=== PATIENT | female | born 1960 | race Caucasian/White ===

== ENCOUNTER 2017-05-12 03:16 | Emergency (ER) | payer MEDICARE, MEDICAID ==
[2017-05-12 03:33] VITALS: BP 130/66
[2017-05-12] MEDS ORDERED: Albuterol/Ipratropium 3.0-0.5 MG/3 ML Neb Soln NEB ONE (03:39)
--- NOTE | 2017-05-12 03:52 | EDM.PDOC ---
ED HPI GENERAL MEDICAL PROBLEM - General Chief Complaint: Asthma Stated Complaint: ASTMA ATTACK Time Seen by Provider: 05/12/17 03:25 Source of Information: Reports: Patient - History of Present Illness INITIAL COMMENTS - FREE TEXT/NARRATIVE: 56 y.o.w.f.smoker, h/o asthma,come to the ed due to a dry cough. Pt is using inhalers, which do not work. No F/C. Pt vomited in the parking lot because of the cough. Pt denied other acute medical issues. BP 130/66, pulse 135 Pulse ox 91, RR 22 Onset: Today Onset Date: 05/11/17 Onset Time: 22:00 Duration: Hour(s):, Intermittent Location: Reports: Chest Quality: Reports: Other (dry cough) Severity: Mild Improves with: Reports: Medication Worsens with: Reports: Movement Context: Reports: Other (h/o asthma, smoker) Associated Symptoms: Reports: No Other Symptoms Treatments MOVING CONSULTANT: Reports: Other Medication(s) Other Treatments MOVING CONSULTANT: albuterol inhaler back, throat, head, chest Pain Score (Numeric/FACES): 10 - Related Data Allergies Allergy/AdvReac Type Severity Reaction Status Date / Time Penicillins Allergy Anaphylactic Verified 05/12/17 03:23 Shock Home Meds: Home Meds Albuterol Sulfate [Proair Hfa] 2 puff INH Q4HR PRN 03/20/13 [History] Esomeprazole [NexIUM] 40 mg PO DAILY 03/20/13 [History] Ranitidine [Zantac] 150 mg PO BID 03/20/13 [History] Topiramate 50 mg PO BID 03/20/13 [History] Metoprolol Succinate [Toprol XL] 100 mg PO DAILY 02/20/14 [History] Venlafaxine [Effexor] 75 mg PO BID #60 tablet 02/22/14 [Rx] Lidocaine 2% [Xylocaine 2% Jelly] 1 applic TOP DAILY PRN 05/23/16 [History] Rizatriptan [Maxalt COMM[employer]CIAL REAL ESTATE ATTORNEY] 10 mg PO Q2H PRN 05/23/16 [History] metFORMIN [Glucophage] 500 mg PO BIDMEALS 05/23/16 [History] Past Medical History Cardiovascular History: Reports: Hypertension Respiratory History: Reports: Asthma, COPD Gastrointestinal History: Reports: GERD, GI Bleed, Pancreatitis Genitourinary History: Reports: Renal Disease Other Genitourinary History: 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: Musculoskeletal History: Reports: Back Pain, Chronic, Neck Pain, Chronic, Osteoarthritis Neurological History: Reports: Headaches, Chronic Psychiatric History: Reports: Depression Endocrine/Metabolic History: Reports: Diabetes, Type II - Past Surgical History Neurological Surgical History: Reports: C-Spine, Spinal Fusion Musculoskeletal Surgical History: Reports: Carpal Tunnel Social & Family History - Family History Family Medical History: Noncontributory - Tobacco Use Smoking Status *Q: Current Every Day Smoker Years of Tobacco use: 45 Packs/Tins Daily: 1 Second Hand Smoke Exposure: Yes - Caffeine Use Caffeine Use: Reports: Soda - Alcohol Use Days Per Week of Alcohol Use: 0 - Recreational Drug Use Recreational Drug Use: No ED ROS GENERAL - Review of Systems Review Of Systems: See Below Constitutional: Reports: No Symptoms HEENT: Reports: No Symptoms Respiratory: Reports: Cough Cardiovascular: Reports: No Symptoms Endocrine: Reports: No Symptoms GI/Abdominal: Reports: No Symptoms : Reports: No Symptoms Musculoskeletal: Reports: No Symptoms Skin: Reports: No Symptoms Neurological: Reports: No Symptoms Psychiatric: Reports: No Symptoms Hematologic/Lymphatic: Reports: No Symptoms Immunologic: Reports: No Symptoms ED EXAM, GENERAL - Physical Exam Exam: See Below Exam Limited By: No Limitations General Appearance: Alert, WD/WN, Mild Distress Eye Exam: Bilateral Eye: Normal Inspection Ears: Normal External Exam Ear Exam: Bilateral Ear: Auricle Normal Nose: Normal Inspection, Normal Mucosa Throat/Mouth: Normal Inspection, Normal Lips Head: Atraumatic, Normocephalic Neck: Normal Inspection, Supple, Non-Tender, Full Range of Motion Respiratory/Chest: Rhonchi, Wheezing Cardiovascular: Normal Peripheral Pulses, Regular Rate, Rhythm, No Edema, No Gallop, No JVD, No Murmur Peripheral Pulses: 1+: Radial (L), Radial (R) GI/Abdominal: Normal Bowel Sounds, Soft, Non-Tender (Female) Exam: Deferred Rectal (Female) Exam: Deferred Back Exam: Normal Inspection, Full Range of Motion Extremities: Normal Inspection, Normal Range of Motion Neurological: Alert, Oriented, CN II-XII Intact, Normal Cognition, Normal Gait Psychiatric: Normal Affect, Normal Mood Skin Exam: Warm, Dry, Intact, Normal Color, No Rash Lymphatic: No Adenopathy Course - Vital Signs Text/Narrative:: 56 y.o.w.f.smoker, h/o asthma,come to the ed due to a dry cough. Pt is using inhalers, which do not work. No F/C. Pt vomited in the parking lot because of the cough. Pt denied other acute medical issues. BP 130/66, pulse 135 Pulse ox 91, RR 22 PE: WNWD wf NAD with wheeze and rhonchi Impression: Chronic bronchitis, Asthma Tx: Duobeb Reexam: Couhging, wheezing and rhonchi subsided, puse was 91 on D/C Plan: D/C with instructions Last Recorded V/S: Last Vital Signs Temp 37.6 C 05/12/17 03:25 Pulse 139 H 05/12/17 03:25 Resp 22 H 05/12/17 03:25 BP 130/66 05/12/17 03:25 Pulse Ox 91 L 05/12/17 03:25 - Orders/Labs/Meds Orders: Active Orders 24 hr Category Date Time Status RT Aerosol Therapy [RC] ASDIRECTED Care 05/12/17 03:39 Active Meds: Medications Discontinued Medications Generic Name Dose Route Start Last Admin Trade Name Juanq PRN Reason Stop Dose Admin Albuterol/Ipratropium 3 ml 05/12/17 03:39 05/12/17 03:44 Duoneb 3.0-0.5 Mg/3 Ml NEB 05/12/17 03:40 3 ml ONETIME ONE Administration Departure - Departure Time of Disposition: 03:54 Disposition: Home, Self-Care 01 Condition: Good Clinical Impression: Asthma Qualifiers: Asthma severity: mild Asthma persistence: intermittent Asthma complication type : uncomplicated Qualified Code(s): J45.20 - Mild intermittent asthma, uncomplicated - Discharge Information Referrals: Trae Alexander MD [Primary Care Provider] - Forms: ED Department Discharge Additional Instructions: Please cont your meds, f/u, come back if acutely worse. - My Orders Last 24 Hours: My Active Orders 05/12/17 03:39 RT Aerosol Therapy [RC] ASDIRECTED - Assessment/Plan Last 24 Hours: My Active Orders 05/12/17 03:39 RT Aerosol Therapy [RC] ASDIRECTED
== END 2017-05-12 04:00 | disposition home or self-care (01) ==
LOC: FB.ED 03:16
DX: J45.20 Mild intermittent asthma, uncomplicated (principal); K21.9 Gastro-esophageal reflux disease without esophagitis; I10 Essential (primary) hypertension; E11.9 Type 2 diabetes mellitus without complications; F17.210 Nicotine dependence, cigarettes, uncomplicated; Z88.0 Allergy status to penicillin; Z79.899 Other long term (current) drug therapy
CPT/HCPCS: 94640; 99284; J7620; 99283

== ENCOUNTER → 2019-06-06 | Outpatient (CLI) | payer MEDICARE, MEDICAID ==
[~2019-06-06] MED LIST: Ketorolac 60 MG/2 ML SDV IM ONE; Ondansetron 4 MG/2 ML SDV IM ONE
== END ==
LOC: FB.CLBR 16:02
PROVIDERS: ATTEND Nurse Practitioner Family
DX: J02.9 Acute pharyngitis, unspecified (principal); G43.909 Migraine, unspecified, not intractable, without status migrainosus
CPT/HCPCS: 87081; 87880; 96372; 99213; J1885; J2405

== ENCOUNTER 2019-06-20 10:12 | Day surgery (SDC) | payer MEDICARE, MEDICAID ==
[2019-06-20] MEDS ORDERED: Bupivacaine 0.25% 30 ML SDV INJECT ONE (10:13)
[2019-06-20] MEDS ORDERED: methylPREDNISolone Acetate 80 MG/ML SDV IM ONE (10:13)
[2019-06-20 11:02] VITALS: BP 130/78; PULSE 89
--- NOTE | 2019-06-21 09:40 | ANES ---
DATE OF PROCEDURE: 06/20/2019 REFERRING PHYSICIAN: Gini Shepard CNP PROCEDURE PERFORMED: Epidural steroid injection at L4-L5. REFERRAL DIAGNOSIS: Lumbar radiculopathy PATIENT'S MRI RESULT IMPRESSION: 1. Degenerative changes of the lumbar spine were not significantly changed from the prior in the setting of grade 1 degenerative anterolisthesis of L4 and L5. 2. Advanced facet degeneration bilaterally at L4-L5 without significant canal stenosis. PATIENT'S BACK AND PAIN HISTORY: She has had 35 years of back problems and back pain. She started having some steroid injections in her back 15 to 20 years ago. Her last injection was approximately 7 years ago in [place]. She was having them every 3 months. She said they stopped them because she felt like she was getting osteoporosis from the steroid. Her symptoms got worst approximately 2 years ago, and this past summer significantly worse. Her pain is in her lower back, and it radiates down her left lateral thigh all the way to her foot on her left side. She only takes Tylenol for pain medications. Her initial pain level today was 4. With activity, it goes up to 7 to 8. On examining the patient, she did have pain more significantly at L4-L5 area and bilateral SI joint tenderness. I discussed the risks and benefits of having the steroid injection today, and she accepts the risks and wants to proceed with the steroid injection. DESCRIPTION OF PROCEDURE: The patient was taken back to the procedure room, and she sat on the procedure bed. Informed consent was signed prior to the procedure. Time-out was at 1041 hours. After the patient was comfortable on the bed in a sitting position, I used 3 Betadine swabs to cleanse the skin and applied a sterile drape. Epidural procedure was done under sterile technique. 3 mL of 1% lidocaine was injected into her L4-L5 area. A #17 gauge Tuohy needle was used and passed x2. Good loss of resistance was felt at approximately 7 cm. At this point, I injected Depo Medrol 80 mg, total of 2 mL, and 5 mL Marcaine PF 0.25%.There was no CSF Blood or parathesia After the procedure was done, the needle was withdrawn. The back was washed off with a warm cloth and Band-Aid applied. The patient stood with somebody at her side. Her pain level at this point was 0 out of 10. The patient walked back to her room. Instructions were given to the patient to call with any increased discomfort. I asked her to fill out the pain diary form to keep track of her results from this steroid injection. The patient was told that she can have this repeated 3 times during the year and to call if she would like another injection. Asked the patient to call if she had any increased pain, increased leg weakness or temperature. The patient was satisfied with 0 out of 10 for pain on discharge. /[id number] CLARIBEL/ALLI ZULUAGA
== END 2019-06-20 11:10 | disposition home or self-care (01) ==
LOC: FB.SDS 10:12
PROVIDERS: ATTEND Nurse Practitioner Family
DX: M47.816 Spondylosis without myelopathy or radiculopathy, lumbar region (principal); M43.16 Spondylolisthesis, lumbar region; J44.9 Chronic obstructive pulmonary disease, unspecified; G43.909 Migraine, unspecified, not intractable, without status migrainosus; Z88.0 Allergy status to penicillin; Z79.899 Other long term (current) drug therapy; Z79.84 Long term (current) use of oral hypoglycemic drugs
CPT/HCPCS: 62322; J1040; J3490

== ENCOUNTER 2019-08-20 09:41 | Emergency (ER) | payer MEDICARE, MEDICAID ==
[2019-08-20] MEDS: Sodium Chloride 0.9% 1,000 ML IV SCH ×2 (11:25→13:37)
[2019-08-20] MEDS ORDERED: Levofloxacin/Dextrose 5%-Water 750 MG in Premix Bag 1 BAG IV ONE (12:33)
--- NOTE | 2019-08-20 12:41 | EDM.PDOC ---
ED HPI GENERAL MEDICAL PROBLEM - General Chief Complaint: Respiratory Problem Stated Complaint: FLU Time Seen by Provider: 08/20/19 10:10 Source of Information: Reports: Patient, Family History Limitations: Reports: No Limitations - History of Present Illness INITIAL COMMENTS - FREE TEXT/NARRATIVE: brought in by daughter states she has been ill for about 3 days on wednesday developed nausea and vomiting , states she vomited about 10 times , has not been able to keep any fluids or food down reduced urine out put as she has not been drinking has gotten gradually weak has generalized abd pain , more periumbilical has had no diarrhea or BM no cough , Unsure of fever daughter states she has a history of pancreatitis still a smoker Onset: Today Onset Date: 08/17/19 Duration: Day(s):, Getting Worse Location: Reports: Abdomen, Radiates to (to the back ) Quality: Reports: Ache, Dull Severity: Moderate Improves with: Reports: Heat Therapy Worsens with: Reports: Breathing, Eating, Movement Associated Symptoms: Reports: Loss of Appetite, Malaise, Nausea/Vomiting, Weakness - Related Data Allergies Allergy/AdvReac Type Severity Reaction Status Date / Time Penicillins Allergy Hives Verified 08/20/19 10:11 Home Meds: Home Meds Albuterol Sulfate [Proair Hfa] 2 puff INH Q4HR PRN 03/20/13 [History] Esomeprazole [NexIUM] 40 mg PO DAILY 03/20/13 [History] Ranitidine [Zantac] 150 mg PO BEDTIME 03/20/13 [History] Topiramate 50 mg PO DAILY 03/20/13 [History] Venlafaxine [Effexor] 75 mg PO BID #60 tablet 02/22/14 [Rx] Lidocaine 2% [Xylocaine 2% Jelly] 1 applic TOP DAILY PRN 05/23/16 [History] metFORMIN [Glucophage] 1,000 mg PO BIDMEALS 05/23/16 [History] Montelukast [Singulair] 10 mg PO BEDTIME 06/19/19 [History] Pantoprazole [ProTONIX Granules] 40 mg PO DAILY 06/19/19 [History] Pregabalin 25 mg PO BID 06/19/19 [History] Simvastatin 40 mg PO DAILY 06/19/19 [History] amLODIPine Besylate [Amlodipine Besylate] 10 mg PO DAILY 06/19/19 [History] glipiZIDE [Glipizide Xl] 2.5 mg PO DAILY 06/19/19 [History] lisinopriL [Lisinopril] 20 mg PO DAILY 06/19/19 [History] Past Medical History - Past Health History Medical/Surgical History: Denies Medical/Surgical History Cardiovascular History: Reports: High Cholesterol, Hypertension Respiratory History: Reports: Asthma, COPD Gastrointestinal History: Reports: Gastritis, GERD, GI Bleed, Pancreatitis Genitourinary History: Reports: Renal Disease Other Genitourinary History: 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, 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: Musculoskeletal History: Reports: Back Pain, Chronic, Neck Pain, Chronic, Osteoarthritis Other Musculoskeletal History: SPINAL STENOSIS, SPONDYLOLYSIS Neurological History: Reports: Headaches, Chronic, Migraines Psychiatric History: Reports: Depression Endocrine/Metabolic History: Reports: Diabetes, Type II - Past Surgical History Neurological Surgical History: Reports: C-Spine, Spinal Fusion Musculoskeletal Surgical History: Reports: Carpal Tunnel Other Musculoskeletal Surgeries/Procedures:: C- SPINE SURGERY Social & Family History - Family History Family Medical History: Noncontributory - Tobacco Use Smoking Status *Q: Current Every Day Smoker Years of Tobacco use: 42 Packs/Tins Daily: 2 Used Tobacco, but Quit: No Second Hand Smoke Exposure: Yes - Caffeine Use Caffeine Use: Reports: Coffee - Recreational Drug Use Recreational Drug Use: No ED ROS GENERAL - Review of Systems Review Of Systems: See Below Constitutional: Reports: Malaise, Weakness, Fatigue, Night Sweats, Diaphoresis, Decreased Appetite HEENT: Reports: No Symptoms Respiratory: Reports: No Symptoms Cardiovascular: Reports: No Symptoms Endocrine: Reports: Fatigue GI/Abdominal: Reports: Abdominal Pain, Anorexia, Decreased Appetite. Denies: Constipation, Diarrhea : Reports: No Symptoms Musculoskeletal: Reports: No Symptoms Neurological: Reports: No Symptoms Psychiatric: Reports: No Symptoms Hematologic/Lymphatic: Reports: No Symptoms ED EXAM, GENERAL - Physical Exam Exam: See Below Exam Limited By: No Limitations General Appearance: Alert, Lethargic Eye Exam: Bilateral Eye: EOMI Ears: Normal TMs Ear Exam: Bilateral Ear: Auricle Normal Nose: Normal Inspection Throat/Mouth: Other (dry mucous membranes) Head: Atraumatic, Normocephalic. No: Facial Tenderness Neck: Supple, Non-Tender, Full Range of Motion Respiratory/Chest: Lungs Clear, Normal Breath Sounds, Chest Non-Tender Cardiovascular: Regular Rate, Rhythm GI/Abdominal: Soft, Tender (generalized tenderness), Abnormal Bowel Sounds ( hypoactive). No: Guarding, Rigid, Rebound, Hepatomegaly, Splenomegaly Back Exam: Full Range of Motion. No: CVA Tenderness (R), CVA Tenderness (L), Decreased Range of Motion Neurological: Alert, Oriented, CN II-XII Intact Skin Exam: Warm, Mottled, Pallor. No: Jaundice Lymphatic: No Adenopathy Course - Vital Signs Last Recorded V/S: Last Vital Signs Temp 36.3 C 08/20/19 14:32 Pulse 116 H 08/20/19 14:32 Resp 22 H 08/20/19 14:32 BP 137/50 L 08/20/19 14:32 Pulse Ox 99 08/20/19 14:32 - Orders/Labs/Meds Orders: Active Orders 24 hr Category Date Time Status Abdomen 2V AP Flat Upright [CR] Stat Exams 08/20/19 10:20 Taken Chest 2V [CR] Stat Exams 08/20/19 12:49 Taken CULTURE BLOOD [BC] Urgent Lab 08/20/19 12:56 Received CULTURE BLOOD [BC] Urgent Lab 08/20/19 13:05 Received Blood Culture x2 Reflex Set [OM.PC] Urgent Oth 08/20/19 12:32 Ordered Labs: Laboratory Tests 08/20/19 08/20/19 08/20/19 Range/Units 10:30 10:35 10:35 WBC 26.4 H (4.5-12.0) X10-3/uL RBC 4.07 (3.23-5.20) x10(6)uL Hgb 12.1 (11.5-15.5) g/dL Hct 38.3 (30.0-51.3) % MCV 94.1 (80-96) fL MCH 29.8 (27.7-33.6) pg MCHC 31.6 L (32.2-35.4) g/dL RDW 20.0 H (11.5-15.5) % Plt Count 637 H (125-369) X10(3)uL MPV 6.6 L (7.4-10.4) fL Add Manual Diff Yes Neutrophils % (Manual) 88 H (46-82) % Band Neutrophils % 1 (0-6) % Lymphocytes % (Manual) 7 L (13-37) % Monocytes % (Manual) 4 (4-12) % Anisocytosis Many H Sodium 134 L (135-145) mmol/L Potassium 4.7 D (3.5-5.3) mmol/L Chloride 99 L (100-110) mmol/L Carbon Dioxide 5 L* (21-32) mmol/L BUN 22 H (7-18) mg/dL Creatinine 2.4 H* (0.55-1.02) mg/dL Est Cr Clr Drug Dosing TNP Estimated GFR (MDRD) 21 L (>60) BUN/Creatinine Ratio 9.2 (9-20) Glucose 199 H (80-116) mg/dL Lactic Acid (0.4-2.0) mmol/L Calcium 10.1 (8.6-10.2) mg/dL Total Bilirubin 0.3 (0.1-1.3) mg/dL Direct Bilirubin 0.07 L (0.10-0.20) mg/dL AST 28 H D (5-25) IU/L ALT 14 D (12-36) U/L Alkaline Phosphatase 118 H (56-112) IU/L C-Reactive Protein (0.5-0.9) mg/dL Total Protein 7.8 (6.0-8.0) g/dL Albumin 3.6 (3.2-4.6) g/dL Amylase 1638 H* (25-115) U/L Lipase (73-393) U/L Urine Color (YELLOW) Urine Appearance (CLEAR) Urine pH (5.0-6.5) Ur Specific [place] (1.010-1.025) Urine Protein (NEGATIVE) mg/dL Urine Glucose (UA) (NORMAL) mg/dL Urine Ketones (NEGATIVE) mg/dL Urine Occult Blood (NEGATIVE) Urine Nitrite (NEGATIVE) Urine Bilirubin (NEGATIVE) Urine Urobilinogen (NEGATIVE) mg/dL Ur Leukocyte Esterase (NEGATIVE) Urine RBC (0-5) Urine WBC (0-5) Ur Squamous Epith Cells (NS,R,O) Amorphous Sediment Urine Bacteria (NS) 08/20/19 08/20/19 08/20/19 Range/Units 10:35 11:55 11:56 WBC (4.5-12.0) X10-3/uL RBC (3.23-5.20) x10(6)uL Hgb (11.5-15.5) g/dL Hct (30.0-51.3) % MCV (80-96) fL MCH (27.7-33.6) pg MCHC (32.2-35.4) g/dL RDW (11.5-15.5) % Plt Count (125-369) X10(3)uL MPV (7.4-10.4) fL Add Manual Diff Neutrophils % (Manual) (46-82) % Band Neutrophils % (0-6) % Lymphocytes % (Manual) (13-37) % Monocytes % (Manual) (4-12) % Anisocytosis Sodium (135-145) mmol/L Potassium (3.5-5.3) mmol/L Chloride (100-110) mmol/L Carbon Dioxide (21-32) mmol/L BUN (7-18) mg/dL Creatinine (0.55-1.02) mg/dL Est Cr Clr Drug Dosing Estimated GFR (MDRD) (>60) BUN/Creatinine Ratio (9-20) Glucose (80-116) mg/dL Lactic Acid 2.4 H* (0.4-2.0) mmol/L Calcium (8.6-10.2) mg/dL Total Bilirubin (0.1-1.3) mg/dL Direct Bilirubin (0.10-0.20) mg/dL AST (5-25) IU/L ALT (12-36) U/L Alkaline Phosphatase (56-112) IU/L C-Reactive Protein 11.7 H* (0.5-0.9) mg/dL Total Protein (6.0-8.0) g/dL Albumin (3.2-4.6) g/dL Amylase (25-115) U/L Lipase 8790 H (73-393) U/L Urine Color (YELLOW) Urine Appearance (CLEAR) Urine pH (5.0-6.5) Ur Specific [place] (1.010-1.025) Urine Protein (NEGATIVE) mg/dL Urine Glucose (UA) (NORMAL) mg/dL Urine Ketones (NEGATIVE) mg/dL Urine Occult Blood (NEGATIVE) Urine Nitrite (NEGATIVE) Urine Bilirubin (NEGATIVE) Urine Urobilinogen (NEGATIVE) mg/dL Ur Leukocyte Esterase (NEGATIVE) Urine RBC (0-5) Urine WBC (0-5) Ur Squamous Epith Cells (NS,R,O) Amorphous Sediment Urine Bacteria (NS) 08/20/19 Range/Units 13:10 WBC (4.5-12.0) X10-3/uL RBC (3.23-5.20) x10(6)uL Hgb (11.5-15.5) g/dL Hct (30.0-51.3) % MCV (80-96) fL MCH (27.7-33.6) pg MCHC (32.2-35.4) g/dL RDW (11.5-15.5) % Plt Count (125-369) X10(3)uL MPV (7.4-10.4) fL Add Manual Diff Neutrophils % (Manual) (46-82) % Band Neutrophils % (0-6) % Lymphocytes % (Manual) (13-37) % Monocytes % (Manual) (4-12) % Anisocytosis Sodium (135-145) mmol/L Potassium (3.5-5.3) mmol/L Chloride (100-110) mmol/L Carbon Dioxide (21-32) mmol/L BUN (7-18) mg/dL Creatinine (0.55-1.02) mg/dL Est Cr Clr Drug Dosing Estimated GFR (MDRD) (>60) BUN/Creatinine Ratio (9-20) Glucose (80-116) mg/dL Lactic Acid (0.4-2.0) mmol/L Calcium (8.6-10.2) mg/dL Total Bilirubin (0.1-1.3) mg/dL Direct Bilirubin (0.10-0.20) mg/dL AST (5-25) IU/L ALT (12-36) U/L Alkaline Phosphatase (56-112) IU/L C-Reactive Protein (0.5-0.9) mg/dL Total Protein (6.0-8.0) g/dL Albumin (3.2-4.6) g/dL Amylase (25-115) U/L Lipase (73-393) U/L Urine Color Yellow (YELLOW) Urine Appearance Clear (CLEAR) Urine pH 5.0 (5.0-6.5) Ur Specific [place] 1.020 (1.010-1.025) Urine Protein 30 H (NEGATIVE) mg/dL Urine Glucose (UA) Normal (NORMAL) mg/dL Urine Ketones 15 H (NEGATIVE) mg/dL Urine Occult Blood Large H (NEGATIVE) Urine Nitrite Negative (NEGATIVE) Urine Bilirubin Negative (NEGATIVE) Urine Urobilinogen Normal (NEGATIVE) mg/dL Ur Leukocyte Esterase Negative (NEGATIVE) Urine RBC 0-5 (0-5) Urine WBC 0-5 (0-5) Ur Squamous Epith Cells Moderate H (NS,R,O) Amorphous Sediment Many Urine Bacteria Moderate H (NS) Meds: Medications Discontinued Medications Generic Name Dose Route Start Last Admin Trade Name Freq PRN Reason Stop Dose Admin Sodium Chloride 1,000 mls @ 999 mls/hr 08/20/19 10:30 08/20/19 13:37 Normal Saline IV 999 mls/hr ASDIRECTED LAUREN Administration Levofloxacin/Dextrose 750 mg/ 150 mls @ 100 mls/hr 08/20/19 12:33 08/20/19 13 :37 Premix IV 08/20/19 14:02 100 mls/hr ONETIME ONE Administration Sodium Chloride 1,000 mls @ 999 mls/hr 08/20/19 13:00 Normal Saline IV ASDIRECTED LAUREN - Re-Assessments/Exams Free Text/Narrative Re-Assessment/Exam: 08/20/19 14:15 pt had ivf started with labs after initial labs, added labs for FU sepsis BYRD blood culture , pending chest xray done pt started on Levoquin Departure - Departure Time of Disposition: 14:50 Disposition: DC/Tfer to [facility] Clinical Impression: Sepsis, Pancreatitis, acute, Renal failure syndrome, Diabetes mellitus type 2 - Discharge Information *PRESCRIPTION DRUG MONITORING PROGRAM REVIEWED*: Not Applicable *COPY OF PRESCRIPTION DRUG MONITORING REPORT IN PATIENT JERALD: Not Applicable Referrals: PCP,None [Primary Care Provider] - Forms: ED Department Discharge Sepsis Event Note - Evaluation Sepsis Screening Result: No Definite Risk - Focused Exam Vital Signs: Vital Signs Temp Pulse Resp BP Pulse Ox 08/20/19 14:32 36.3 C 116 H 22 H 137/50 L 99 08/20/19 09:55 36.4 C 120 H 20 111/63 98 Date Exam was Performed: 08/20/19 Time Exam was Performed: 19:22 - My Orders Last 24 Hours: My Active Orders 08/20/19 10:20 Abdomen 2V AP Flat Upright [CR] Stat 08/20/19 12:32 Blood Culture x2 Reflex Set [OM.PC] Urgent 08/20/19 12:49 Chest 2V [CR] Stat 08/20/19 12:56 CULTURE BLOOD [BC] Urgent 08/20/19 13:05 CULTURE BLOOD [BC] Urgent - Assessment/Plan Last 24 Hours: My Active Orders 08/20/19 10:20 Abdomen 2V AP Flat Upright [CR] Stat 08/20/19 12:32 Blood Culture x2 Reflex Set [OM.PC] Urgent 08/20/19 12:49 Chest 2V [CR] Stat 08/20/19 12:56 CULTURE BLOOD [BC] Urgent 08/20/19 13:05 CULTURE BLOOD [BC] Urgent
[2019-08-20] MEDS ORDERED: Sodium Chloride 0.9% 1,000 ML IV SCH (13:00)
[2019-08-20 14:33] VITALS: BP 137/50; PULSE 116
== END 2019-08-20 14:50 | disposition critical access hospital (66) ==
LOC: FB.ED 09:41
DX: A41.9 Sepsis, unspecified organism (principal); K85.90 Acute pancreatitis without necrosis or infection, unspecified; R65.20 Severe sepsis without septic shock; N19 Unspecified kidney failure; E78.00 Pure hypercholesterolemia, unspecified; I10 Essential (primary) hypertension; J44.9 Chronic obstructive pulmonary disease, unspecified; K21.9 Gastro-esophageal reflux disease without esophagitis; E11.9 Type 2 diabetes mellitus without complications; F32.9 Major depressive disorder, single episode, unspecified; F17.210 Nicotine dependence, cigarettes, uncomplicated; Z88.0 Allergy status to penicillin; Z79.899 Other long term (current) drug therapy; Z79.84 Long term (current) use of oral hypoglycemic drugs
CPT/HCPCS: 36415; 71046; 74019; 80048; 80076; 81001; 82150; 83605; 83690; 85025; 86140; 87040; 96365; 99285; J1956; J7030

== ENCOUNTER 2019-12-07 17:08 | Emergency (ER) | payer MEDICARE, MEDICAID ==
[2019-12-07] MEDS ORDERED: Potassium Chloride 20 MEQ Tab.ER PO STA (18:18)
--- NOTE | 2019-12-07 18:27 | EDM.PDOC ---
ED HPI GENERAL MEDICAL PROBLEM - General Chief Complaint: Diabetic Complaint Stated Complaint: HYPO GLYCEMIA Time Seen by Provider: 12/07/19 17:10 Source of Information: Reports: Patient History Limitations: Reports: No Limitations - History of Present Illness INITIAL COMMENTS - FREE TEXT/NARRATIVE: Patient presented to the Ed because of a hyploglycemic episode. She injected her self with her usual dose of insulin then later on she was feeling dizzy, and called for help. When medics arrived at the scene she was incoherent. An accu check wasd 38 and she was given 1 amp of D50 and regained her consciousness back. She is AAO x3 upon her arrival in the ED. - Related Data Allergies Allergy/AdvReac Type Severity Reaction Status Date / Time Penicillins Allergy Hives Verified 08/20/19 10:11 Home Meds: Home Meds Albuterol Sulfate [Proair Hfa] 2 puff INH Q4HR PRN 03/20/13 [History] Esomeprazole [NexIUM] 40 mg PO DAILY 03/20/13 [History] Ranitidine [Zantac] 150 mg PO BEDTIME 03/20/13 [History] Topiramate 50 mg PO DAILY 03/20/13 [History] Venlafaxine [Effexor] 75 mg PO BID #60 tablet 02/22/14 [Rx] Lidocaine 2% [Xylocaine 2% Jelly] 1 applic TOP DAILY PRN 05/23/16 [History] metFORMIN [Glucophage] 1,000 mg PO BIDMEALS 05/23/16 [History] Montelukast [Singulair] 10 mg PO BEDTIME 06/19/19 [History] Pantoprazole [ProTONIX Granules] 40 mg PO DAILY 06/19/19 [History] Pregabalin 25 mg PO BID 06/19/19 [History] Simvastatin 40 mg PO DAILY 06/19/19 [History] amLODIPine Besylate [Amlodipine Besylate] 10 mg PO DAILY 06/19/19 [History] glipiZIDE [Glipizide Xl] 2.5 mg PO DAILY 06/19/19 [History] lisinopriL [Lisinopril] 20 mg PO DAILY 06/19/19 [History] Past Medical History - Past Health History Medical/Surgical History: Denies Medical/Surgical History Cardiovascular History: Reports: High Cholesterol, Hypertension Respiratory History: Reports: Asthma, COPD Gastrointestinal History: Reports: Gastritis, GERD, GI Bleed, Pancreatitis Genitourinary History: Reports: Renal Disease Other Genitourinary History: 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, 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: Musculoskeletal History: Reports: Back Pain, Chronic, Neck Pain, Chronic, Osteoarthritis Other Musculoskeletal History: SPINAL STENOSIS, SPONDYLOLYSIS Neurological History: Reports: Headaches, Chronic, Migraines Psychiatric History: Reports: Depression Endocrine/Metabolic History: Reports: Diabetes, Type II - Past Surgical History Neurological Surgical History: Reports: C-Spine, Spinal Fusion Musculoskeletal Surgical History: Reports: Carpal Tunnel Other Musculoskeletal Surgeries/Procedures:: C- SPINE SURGERY Social & Family History - Family History Family Medical History: Noncontributory - Caffeine Use Caffeine Use: Reports: Coffee ED ROS GENERAL - Review of Systems Review Of Systems: See Below Constitutional: Reports: No Symptoms HEENT: Reports: No Symptoms Respiratory: Reports: No Symptoms Cardiovascular: Reports: No Symptoms Endocrine: Reports: No Symptoms GI/Abdominal: Reports: No Symptoms : Reports: No Symptoms Musculoskeletal: Reports: No Symptoms Skin: Reports: No Symptoms Neurological: Reports: No Symptoms Psychiatric: Reports: No Symptoms ED EXAM GENERAL NO PERIP PULSE - Physical Exam Exam: See Below Exam Limited By: No Limitations General Appearance: Alert, No Apparent Distress Ears: Normal External Exam, Normal Canal, Hearing Grossly Normal Nose: Normal Inspection, Normal Mucosa, No Blood Throat/Mouth: Normal Inspection, Normal Lips, Normal Teeth Head: Atraumatic, Normocephalic Neck: Normal Inspection, Supple, Non-Tender Respiratory/Chest: No Respiratory Distress, Lungs Clear, Normal Breath Sounds Cardiovascular: Normal Peripheral Pulses, Regular Rate, Rhythm, No Edema, No Gallop GI/Abdominal: Normal Bowel Sounds, Soft, Non-Tender, No Organomegaly Back Exam: Normal Inspection, Full Range of Motion Course - Vital Signs Text/Narrative:: Labs reviewed and discussed with patient and verbalized full understanding Her serum glucose was 83 and was given a meal Klor con 40 meq po x1 dose because of hey hypokalemia Last Recorded V/S: Last Vital Signs Temp 36.1 C 12/07/19 18:45 Pulse 65 12/07/19 18:45 Resp 17 12/07/19 18:45 BP 118/55 L 12/07/19 18:45 Pulse Ox 100 12/07/19 18:45 - Orders/Labs/Meds Labs: Laboratory Tests 12/07/19 12/07/19 Range/Units 17:43 17:43 WBC 7.1 (4.5-12.0) X10-3/uL RBC 3.12 L (3.23-5.20) x10(6)uL Hgb 10.2 L (11.5-15.5) g/dL Hct 31.7 (30.0-51.3) % MCV 101.8 H (80-96) fL MCH 32.6 (27.7-33.6) pg MCHC 32.0 L (32.2-35.4) g/dL RDW 23.3 H (11.5-15.5) % Plt Count 390 H (125-369) X10(3)uL MPV 8.6 (7.4-10.4) fL Neut % (Auto) 71.5 (46-82) % Lymph % (Auto) 23.4 (13-37) % Lee % (Auto) 3.4 L (4-12) % Eos % (Auto) 0 L (1.0-5.0) % Baso % (Auto) 1 (0-2) % Neut # (Auto) 5.1 (1.6-8.3) # Lymph # (Auto) 1.7 (0.6-5.0) # Lee # (Auto) 0.2 (0.0-1.3) # Eos # (Auto) 0.0 (0.0-0.8) # Baso # (Auto) 0.1 (0.0-0.2) # Sodium 139 (135-145) mmol/L Potassium 3.4 L D (3.5-5.3) mmol/L Chloride 106 D (100-110) mmol/L Carbon Dioxide 22 (21-32) mmol/L BUN 13 (7-18) mg/dL Creatinine 0.9 (0.55-1.02) mg/dL Est Cr Clr Drug Dosing TNP Estimated GFR (MDRD) > 60 (>60) BUN/Creatinine Ratio 14.4 (9-20) Glucose 83 D (80-116) mg/dL Calcium 7.8 L D (8.6-10.2) mg/dL Meds: Medications Discontinued Medications Generic Name Dose Route Start Last Admin Trade Name Minna PRN Reason Stop Dose Admin Potassium Chloride 40 meq 12/07/19 18:18 12/07/19 18:40 Klor-Con M20 PO 12/07/19 18:19 40 meq NOW STA Administration Departure - Departure Time of Disposition: 18:30 Disposition: Home, Self-Care 01 Condition: Good Clinical Impression: Hypoglycemia, Hypokalemia - Discharge Information Instructions: Hypokalemia, Hypoglycemia, [id number] Referrals: PCP,None [Primary Care Provider] - Forms: ED Department Discharge Additional Instructions: please read discharge instruction on low blood sugar and low potassium increase oral fluids take a regular meal when you get home follow up with your doctor if your low blood sugar episode is becoming more frequent so your doctor can adjust your insulin dose. Sepsis Event Note - Focused Exam Date Exam was Performed: 12/21/19 Time Exam was Performed: 07:18
[2019-12-07 19:51] VITALS: BP 118/55; PULSE 65
== END 2019-12-07 18:53 | disposition home or self-care (01) ==
LOC: FB.ED 17:08
DX: E11.649 Type 2 diabetes mellitus with hypoglycemia without coma (principal); E87.6 Hypokalemia; E78.00 Pure hypercholesterolemia, unspecified; I10 Essential (primary) hypertension; J44.9 Chronic obstructive pulmonary disease, unspecified; K21.9 Gastro-esophageal reflux disease without esophagitis; F32.9 Major depressive disorder, single episode, unspecified; M19.90 Unspecified osteoarthritis, unspecified site; Z88.0 Allergy status to penicillin; Z79.899 Other long term (current) drug therapy; Z79.84 Long term (current) use of oral hypoglycemic drugs
CPT/HCPCS: 36415; 80048; 85025; 99285; A9270; 99283

== ENCOUNTER 2020-02-14 08:55 | Observation (INO) | payer MEDICARE, MEDICAID ==
[2020-02-14] MEDS ORDERED: Albuterol/Ipratropium 3.0-0.5 MG/3 ML Neb Soln NEB ONE (09:24)
[2020-02-14] MEDS ORDERED: methylPREDNISolone Sodium Succinate 125 MG/2 ML SDV IVPUSH ONE (09:28)
[2020-02-14] MEDS ORDERED: methylPREDNISolone Sodium Succinate 125 MG/2 ML SDV IM ONE (09:30)
--- NOTE | 2020-02-14 11:04 | CR ---
INDICATION: Dyspnea. CHEST, ONE VIEW: Portable AP upright view of the chest 02/14/20 was compared with 09/09/19 and 11/17/18. The heart appears enlarged. Upper lung pulmonary vascularity is slightly prominent and indistinct. Interstitial markings are heavy. Findings suggest the possibility of CHF and interstitial lung edema, possibly with some minimal pleural fluid bilaterally. It is also difficult to exclude minimal patchy bronchopneumonia at the lung bases due to heavy markings. Regarding the latter finding, full inspiration PA and lateral views of the chest may be helpful for further evaluation. MTDD
[2020-02-14] MEDS ORDERED: Metolazone 5 MG Tab PO ONE (12:44)
[2020-02-14] MEDS ORDERED: Furosemide 20 MG/2 ML VIAL IVPUSH STA (12:44)
[2020-02-14] MEDS ORDERED: Sodium Chloride 0.9% 10 ML Syringe FLUSH PRN (12:44)
[2020-02-14] MEDS ORDERED: hydrALAZINE 20 MG/ML SDV IVPUSH ONE (12:54)
[2020-02-14] MEDS ORDERED: Furosemide 40 MG/4 ML VIAL IVPUSH ONE (13:06)
--- NOTE | 2020-02-14 14:11 | EDM.PDOC ---
ED HPI GENERAL MEDICAL PROBLEM - General Chief Complaint: General Stated Complaint: COUGH, COPD Time Seen by Provider: 02/14/20 13:25 Source of Information: Reports: Patient History Limitations: Reports: No Limitations - History of Present Illness INITIAL COMMENTS - FREE TEXT/NARRATIVE: Patient presented to the ED because of dyspnea and bilateral extremity edema, coughing productive of whitish for 1 month. For the past several days her dyspnea has been progressively getting worse. She normally can walk blocks without being dysneic but now she audrey only walk 5 feet and she get winded and tired. There is no associated chest pain, N/V, fever or chills. - Related Data Allergies Allergy/AdvReac Type Severity Reaction Status Date / Time Penicillins Allergy Hives Verified 08/20/19 10:11 Home Meds: Home Meds Albuterol Sulfate [Proair Hfa] 2 puff INH Q4HR PRN 03/20/13 [History] Esomeprazole [NexIUM] 40 mg PO DAILY 03/20/13 [History] Ranitidine [Zantac] 150 mg PO BEDTIME 03/20/13 [History] Topiramate 50 mg PO DAILY 03/20/13 [History] Venlafaxine [Effexor] 75 mg PO BID #60 tablet 02/22/14 [Rx] Lidocaine 2% [Xylocaine 2% Jelly] 1 applic TOP DAILY PRN 05/23/16 [History] metFORMIN [Glucophage] 1,000 mg PO BIDMEALS 05/23/16 [History] Montelukast [Singulair] 10 mg PO BEDTIME 06/19/19 [History] Pantoprazole [ProTONIX Granules] 40 mg PO DAILY 06/19/19 [History] Pregabalin 25 mg PO BID 06/19/19 [History] Simvastatin 40 mg PO DAILY 06/19/19 [History] amLODIPine Besylate [Amlodipine Besylate] 10 mg PO DAILY 06/19/19 [History] glipiZIDE [Glipizide Xl] 2.5 mg PO DAILY 06/19/19 [History] lisinopriL [Lisinopril] 20 mg PO DAILY 06/19/19 [History] Past Medical History - Past Health History Medical/Surgical History: Denies Medical/Surgical History Cardiovascular History: Reports: High Cholesterol, Hypertension Respiratory History: Reports: Asthma, COPD Other Respiratory History: smoker for 50 years. 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: Musculoskeletal History: Reports: Back Pain, Chronic, Neck Pain, Chronic, Osteoarthritis Other Musculoskeletal History: SPINAL STENOSIS, SPONDYLOLYSIS Neurological History: Reports: Headaches, Chronic, Migraines Psychiatric History: Reports: Depression Endocrine/Metabolic History: Reports: Diabetes, Type II - Past Surgical History Neurological Surgical History: Reports: C-Spine, Spinal Fusion Musculoskeletal Surgical History: Reports: Carpal Tunnel Other Musculoskeletal Surgeries/Procedures:: C- SPINE SURGERY Social & Family History - Family History Family Medical History: Noncontributory - Tobacco Use Smoking Status *Q: Never Smoker - Caffeine Use Caffeine Use: Reports: Coffee ED ROS GENERAL - Review of Systems Review Of Systems: See Below Constitutional: Reports: No Symptoms HEENT: Reports: No Symptoms Respiratory: Reports: Shortness of Breath, Cough, Sputum Cardiovascular: Reports: Dyspnea on Exertion, Edema Endocrine: Reports: No Symptoms GI/Abdominal: Reports: No Symptoms : Reports: No Symptoms Musculoskeletal: Reports: No Symptoms Skin: Reports: No Symptoms Neurological: Reports: No Symptoms Psychiatric: Reports: No Symptoms ED EXAM, GENERAL - Physical Exam Exam: See Below Exam Limited By: No Limitations General Appearance: Alert, No Apparent Distress Eye Exam: Bilateral Eye: PERRL Ears: Normal External Exam, Normal Canal Nose: Normal Inspection, Normal Mucosa Throat/Mouth: Normal Inspection, Normal Lips, Normal Teeth Head: Atraumatic, Normocephalic Neck: Normal Inspection, Supple, Non-Tender, Full Range of Motion Respiratory/Chest: No Respiratory Distress, Decreased Breath Sounds, Crackles, Wheezing Cardiovascular: Normal Peripheral Pulses, Regular Rate, Rhythm, No Edema, No Gallop GI/Abdominal: Normal Bowel Sounds, Soft, Non-Tender, No Organomegaly Back Exam: Normal Inspection, Full Range of Motion Extremities: Pedal Edema, Joint Swelling, Other Psychiatric: Normal Affect Course - Vital Signs Text/Narrative:: Labs/EKG/CXR was reviewed with patient and verbalized full understanding EKG-NSR=CXR-see result Duoneb x1 Solumedrol 125 mg IM x1 Lasix 40 mg IV x1 Zaroxolyn 5 mg po x1 Hydralazine 20 mg IV x1 Case Discussed with Dr Mercado Last Recorded V/S: Last Vital Signs Temp 36.7 C 02/14/20 13:21 Pulse 103 H 02/14/20 13:32 Resp 19 02/14/20 13:32 BP 152/82 H 02/14/20 13:32 Pulse Ox 98 02/14/20 13:32 - Orders/Labs/Meds Orders: Active Orders 24 hr Category Date Time Status RT Aerosol Therapy [RC] ASDIRECTED Care 02/14/20 09:28 Active Sodium Chloride 0.9% [Saline Flush] Med 02/14/20 12:44 Active 10 ml FLUSH ASDIRECTED PRN Saline Lock Insert [OM.PC] Routine Oth 02/14/20 12:44 Ordered Medication Orders Sodium Chloride (Saline Flush) 10 ml FLUSH ASDIRECTED PRN PRN Reason: Keep Vein Open Labs: Laboratory Tests 02/14/20 02/14/20 02/14/20 Range/Units 10:00 10:00 10:00 WBC 11.4 (4.5-12.0) X10-3/uL RBC 3.05 L (3.23-5.20) x10(6)uL Hgb 8.5 L (11.5-15.5) g/dL Hct 27.4 L (30.0-51.3) % MCV 89.6 (80-96) fL MCH 27.8 (27.7-33.6) pg MCHC 31.0 L (32.2-35.4) g/dL RDW 18.9 H (11.5-15.5) % Plt Count 316 (125-369) X10(3)uL MPV 8.6 (7.4-10.4) fL Neut % (Auto) 59.6 (46-82) % Lymph % (Auto) 29.0 (13-37) % [facility] % (Auto) 9.8 (4-12) % Eos % (Auto) 1 (1.0-5.0) % Baso % (Auto) 1 (0-2) % Neut # (Auto) 6.8 (1.6-8.3) # Lymph # (Auto) 3.3 (0.6-5.0) # [facility] # (Auto) 1.1 (0.0-1.3) # Eos # (Auto) 0.1 (0.0-0.8) # Baso # (Auto) 0.1 (0.0-0.2) # Sodium 136 (135-145) mmol/L Potassium 3.8 (3.5-5.3) mmol/L Chloride 104 (100-110) mmol/L Carbon Dioxide 23 (21-32) mmol/L BUN 20 H (7-18) mg/dL Creatinine 0.9 (0.55-1.02) mg/dL Est Cr Clr Drug Dosing TNP Estimated GFR (MDRD) > 60 (>60) BUN/Creatinine Ratio 22.2 H (9-20) Glucose 271 H D (80-116) mg/dL Calcium 8.1 L (8.6-10.2) mg/dL Total Bilirubin 0.6 (0.1-1.3) mg/dL AST 25 D (5-25) IU/L ALT 37 H D (12-36) U/L Alkaline Phosphatase 112 (56-112) IU/L Troponin I 37.2 (4.0-60.3) pg/mL NT-Pro-B Natriuret Pep 94330 H* (<=125) pg/mL Total Protein 6.7 (6.0-8.0) g/dL Albumin 2.4 L (3.2-4.6) g/dL Globulin 4.3 g/dL Albumin/Globulin Ratio 0.6 SARS Virus RNA (PCR) (NEGATIVE) 02/14/20 Range/Units 10:05 WBC (4.5-12.0) X10-3/uL RBC (3.23-5.20) x10(6)uL Hgb (11.5-15.5) g/dL Hct (30.0-51.3) % MCV (80-96) fL MCH (27.7-33.6) pg MCHC (32.2-35.4) g/dL RDW (11.5-15.5) % Plt Count (125-369) X10(3)uL MPV (7.4-10.4) fL Neut % (Auto) (46-82) % Lymph % (Auto) (13-37) % [facility] % (Auto) (4-12) % Eos % (Auto) (1.0-5.0) % Baso % (Auto) (0-2) % Neut # (Auto) (1.6-8.3) # Lymph # (Auto) (0.6-5.0) # [facility] [place] # (Auto) (0.0-1.3) # Eos # (Auto) (0.0-0.8) # Baso # (Auto) (0.0-0.2) # Sodium (135-145) mmol/L Potassium (3.5-5.3) mmol/L Chloride (100-110) mmol/L Carbon Dioxide (21-32) mmol/L BUN (7-18) mg/dL Creatinine (0.55-1.02) mg/dL Est Cr Clr Drug Dosing Estimated GFR (MDRD) (>60) BUN/Creatinine Ratio (9-20) Glucose (80-116) mg/dL Calcium (8.6-10.2) mg/dL Total Bilirubin (0.1-1.3) mg/dL AST (5-25) IU/L ALT (12-36) U/L Alkaline Phosphatase (56-112) IU/L Troponin I (4.0-60.3) pg/mL NT-Pro-B Natriuret Pep (<=125) pg/mL Total Protein (6.0-8.0) g/dL Albumin (3.2-4.6) g/dL Globulin g/dL Albumin/Globulin Ratio SARS Virus RNA (PCR) Negative (NEGATIVE) Meds: Medications Generic Name Dose Route Start Last Admin Trade Name Freq PRN Reason Stop Dose Admin Sodium Chloride 10 ml 02/14/20 12:44 Saline Flush FLUSH ASDIRECTED PRN Keep Vein Open Discontinued Medications Generic Name Dose Route Start Last Admin Trade Name Freq PRN Reason Stop Dose Admin Albuterol/Ipratropium 3 ml 02/14/20 09:24 02/14/20 09:40 Duoneb 3.0-0.5 Mg/3 Ml NEB 02/14/20 09:25 3 ml ONETIME ONE Administration Furosemide 60 mg 02/14/20 12:44 Lasix IVPUSH 02/14/20 12:45 NOW STA Furosemide 40 mg 02/14/20 13:06 02/14/20 13:12 Lasix IVPUSH 02/14/20 13:07 40 mg NOW ONE Administration Hydralazine HCl 20 mg 02/14/20 12:54 02/14/20 13:18 Apresoline IVPUSH 02/14/20 12:55 20 mg ONETIME ONE Administration Methylprednisolone Sodium Succinate 125 mg 02/14/20 09:30 02/14/20 09:43 Solu-Medrol IM 02/14/20 09:31 125 mg ONETIME ONE Administration Metolazone 5 mg 02/14/20 12:44 02/14/20 13:12 Zaroxolyn PO 02/14/20 12:45 5 mg ONETIME ONE Administration Departure - Departure Time of Disposition: 12:00 Disposition: Refer to Observation Condition: Good Clinical Impression: New onset of congestive heart failure - Discharge Information Referrals: Trae Alexander MD [Primary Care Provider] - Sepsis Event Note (ED) - Focused Exam Vital Signs: Vital Signs Temp Pulse Resp BP Pulse Ox 02/14/20 13:32 103 H 19 152/82 H 98 02/14/20 13:21 36.7 C 98 18 167/90 H 98 - My Orders Last 24 Hours: My Active Orders 02/14/20 09:28 RT Aerosol Therapy [RC] ASDIRECTED 02/14/20 12:44 Sodium Chloride 0.9% [Saline Flush] 10 ml FLUSH ASDIRECTED PRN Saline Lock Insert [OM.PC] Routine - Assessment/Plan Last 24 Hours: My Active Orders 02/14/20 09:28 RT Aerosol Therapy [RC] ASDIRECTED 02/14/20 12:44 Sodium Chloride 0.9% [Saline Flush] 10 ml FLUSH ASDIRECTED PRN Saline Lock Insert [OM.PC] Routine
[2020-02-14] MEDS ORDERED: Zolpidem 5 MG Tab PO PRN (14:15)
[2020-02-14] MEDS ORDERED: Ondansetron 4 MG/2 ML SDV IVPUSH PRN (14:15)
[2020-02-14] MEDS: Enoxaparin 40 MG/0.4 ML Syringe SUBCUT SCH (14:40)
[2020-02-14] MEDS ORDERED: Lidocaine 5% 700 MG Patch TOP PRN (16:46)
[2020-02-14] MEDS ORDERED: Lidocaine 2% Jelly 30 ML Tube TOP PRN (16:46)
[2020-02-14] MEDS ORDERED: Albuterol 8 GM Inhaler INH PRN (16:46)
--- NOTE | 2020-02-14 16:58 | PCM.HP.2 ---
H&P History of Present Illness - General Date of Service: 02/14/20 Admit Problem/Dx: Admission Diagnosis/Problem Admission Diagnosis/Problem CHF, Congestive heart failure Source of Information: Patient, Old Records History Limitations: Reports: No Limitations - History of Present Illness Initial Comments - Free Text/Narative: This is a 59-year-old female patient with known history of COPD and smoker comes in to the ER after being sent over by clinic with increasing shortness of breath. She says over the last month she's been getting more short of breath. She says her legs are swollen and her abdomen is bloated. She does have some wheezing but this feels different than when she has COPD. She's had been in the hospital for COPD. She does have a cough with whitish discharge she states. She denies fevers, chills, chest pain. Has little bit of runny nose. She says at fi rst when she lays on she is more short of breath. She cannot walk as far as she is to walk. - Related Data Allergies/Adverse Reactions: Allergies Allergy/AdvReac Type Severity Reaction Status Date / Time Penicillins Allergy Hives Verified 08/20/19 10:11 Home Medications: Home Meds Albuterol Sulfate [Proair Hfa] 2 puff INH Q4HR PRN 03/20/13 [History] Topiramate 50 mg PO DAILY 03/20/13 [History] Lidocaine 2% [Xylocaine 2% Jelly] 1 applic TOP DAILY PRN 05/23/16 [History] Montelukast [Singulair] 10 mg PO BEDTIME 06/19/19 [History] Pantoprazole [ProTONIX Granules] 40 mg PO DAILY 06/19/19 [History] Pregabalin 25 mg PO BID 06/19/19 [History] Simvastatin 40 mg PO DAILY 06/19/19 [History] amLODIPine Besylate [Amlodipine Besylate] 10 mg PO DAILY 06/19/19 [History] glipiZIDE [Glipizide Xl] 2.5 mg PO DAILY 06/19/19 [History] lisinopriL [Lisinopril] 20 mg PO DAILY 06/19/19 [History] Budesonide/Formoterol [Symbicort 160-4.5 MCG] 2 puff INH BID 07/29/20 [History] Escitalopram Oxalate [Lexapro] 20 mg PO DAILY 02/14/20 [History] Insulin Aspart [NovoLOG] 10 units SUBCUT TIDMEALS 02/14/20 [History] Insulin Glargine,Hum.Rec.Anlog [Lantus Solostar] 8 units SUBCUT BEDTIME 02/14/20 [History] Lidocaine 5% [Lidoderm 5%] 700 mg TOP DAILY PRN 02/14/20 [History] Metoprolol Succinate 100 mg PO DAILY 02/14/20 [History] Past Medical History - Past Health History Medical/Surgical History: Denies Medical/Surgical History Cardiovascular History: Reports: High Cholesterol, Hypertension Respiratory History: Reports: Asthma, COPD Other Respiratory History: smoker for 50 years. Gastrointestinal History: Reports: Gastritis, GERD, GI Bleed, Pancreatitis Genitourinary History: Reports: Renal Disease Other Genitourinary History: 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, GASTRIC [employer] History: Reports: Musculoskeletal History: Reports: Back Pain, Chronic, Neck Pain, Chronic, Osteoarthritis Other Musculoskeletal History: SPINAL STENOSIS, SPONDYLOLYSIS Neurological History: Reports: Headaches, Chronic, Migraines Psychiatric History: Reports: Depression Endocrine/Metabolic History: Reports: Diabetes, Type II - Past Surgical History Neurological Surgical History: Reports: C-Spine, Spinal Fusion Musculoskeletal Surgical History: Reports: Carpal Tunnel Other Musculoskeletal Surgeries/Procedures:: C- SPINE SURGERY Social & Family History - Family History Family Medical History: Noncontributory - Tobacco Use Smoking Status *Q: Never Smoker - Caffeine Use Caffeine Use: Reports: Coffee H&P Review of Systems - Review of Systems: Review Of Systems: See Below General: Reports: No Symptoms HEENT: Reports: No Symptoms Pulmonary: Reports: Shortness of Breath, Wheezing, Cough, Sputum. Denies: Hem optysis Cardiovascular: Reports: Edema Gastrointestinal: Reports: No Symptoms, Other (No symptoms except see history of present illness.) Genitourinary: Reports: No Symptoms Musculoskeletal: Reports: No Symptoms Skin: Reports: No Symptoms Psychiatric: Reports: No Symptoms Neurological: Reports: No Symptoms Hematologic/Lymphatic: Reports: No Symptoms Immunologic: Reports: No Symptoms Exam - Exam Exam: See Below - Vital Signs Vital Signs: Last Vital Signs Temp 98.1 F 02/14/20 15:52 Pulse 96 02/14/20 15:52 Resp 17 02/14/20 15:52 BP 149/85 H 02/14/20 15:52 Pulse Ox 98 02/14/20 15:52 Weight: 160 lb - Exam General: Alert, Oriented, Cooperative HEENT: Hearing Intact, Posterior Pharynx Clear, TMs Clear Neck: Supple, Trachea Midline, JVD Lungs: Clear to Auscultation, Normal Respiratory Effort. No: Crackles, Rales, Rhonchi Cardiovascular: Regular Rate, Regular Rhythm, Normal S1, Systolic Murmur GI/Abdominal Exam: Normal Bowel Sounds, Soft, Non-Tender, Distended Extremities: Normal Inspection, No Pedal Edema, Pedal Edema Skin: Warm, Dry, Intact Neurological: Normal Speech, Normal Tone Psychiatric: Alert, Normal Affect, Normal Mood - Patient Data Lab Results Last 24 hrs: Laboratory Results - last 24 hr 02/14/20 02/14/20 02/14/20 Range/Units 10:00 10:00 10:00 WBC 11.4 (4.5-12.0) X10-3/uL RBC 3.05 L (3.23-5.20) x10(6)uL Hgb 8.5 L (11.5-15.5) g/dL Hct 27.4 L (30.0-51.3) % MCV 89.6 (80-96) fL MCH 27.8 (27.7-33.6) pg MCHC 31.0 L (32.2-35.4) g/dL RDW 18.9 H (11.5-15.5) % Plt Count 316 (125-369) X10(3)uL MPV 8.6 (7.4-10.4) fL Neut % (Auto) 59.6 (46-82) % Lymph % (Auto) 29.0 (13-37) % Fleming % (Auto) 9.8 (4-12) % Eos % (Auto) 1 (1.0-5.0) % Baso % (Auto) 1 (0-2) % Neut # (Auto) 6.8 (1.6-8.3) # Lymph # (Auto) 3.3 (0.6-5.0) # Fleming # (Auto) 1.1 (0.0-1.3) # Eos # (Auto) 0.1 (0.0-0.8) # Baso # (Auto) 0.1 (0.0-0.2) # Sodium 136 (135-145) mmol/L Potassium 3.8 (3.5-5.3) mmol/L Chloride 104 (100-110) mmol/L Carbon Dioxide 23 (21-32) mmol/L BUN 20 H (7-18) mg/dL Creatinine 0.9 (0.55-1.02) mg/dL Est Cr Clr Drug Dosing TNP Estimated GFR (MDRD) > 60 (>60) BUN/Creatinine Ratio 22.2 H (9-20) Glucose 271 H D (80-116) mg/dL Calcium 8.1 L (8.6-10.2) mg/dL Total Bilirubin 0.6 (0.1-1.3) mg/dL AST 25 D (5-25) IU/L ALT 37 H D (12-36) U/L Alkaline Phosphatase 112 (56-112) IU/L Troponin I 37.2 (4.0-60.3) pg/mL NT-Pro-B Natriuret Pep 67119 H* (<=125) pg/mL Total Protein 6.7 (6.0-8.0) g/dL Albumin 2.4 L (3.2-4.6) g/dL Globulin 4.3 g/dL Albumin/Globulin Ratio 0.6 SARS Virus RNA (PCR) (NEGATIVE) 02/14/20 Range/Units 10:05 WBC (4.5-12.0) X10-3/uL RBC (3.23-5.20) x10(6)uL Hgb (11.5-15.5) g/dL Hct (30.0-51.3) % MCV (80-96) fL MCH (27.7-33.6) pg MCHC (32.2-35.4) g/dL RDW (11.5-15.5) % Plt Count (125-369) X10(3)uL MPV (7.4-10.4) fL Neut % (Auto) (46-82) % Lymph % (Auto) (13-37) % Fleming % (Auto) (4-12) % Eos % (Auto) (1.0-5.0) % Baso % (Auto) (0-2) % Neut # (Auto) (1.6-8.3) # Lymph # (Auto) (0.6-5.0) # Fleming # (Auto) (0.0-1.3) # Eos # (Auto) (0.0-0.8) # Baso # (Auto) (0.0-0.2) # Sodium (135-145) mmol/L Potassium (3.5-5.3) mmol/L Chloride (100-110) mmol/L Carbon Dioxide (21-32) mmol/L BUN (7-18) mg/dL Creatinine (0.55-1.02) mg/dL Est Cr Clr Drug Dosing Estimated GFR (MDRD) (>60) BUN/Creatinine Ratio (9-20) Glucose (80-116) mg/dL Calcium (8.6-10.2) mg/dL Total Bilirubin (0.1-1.3) mg/dL AST (5-25) IU/L ALT (12-36) U/L Alkaline Phosphatase (56-112) IU/L Troponin I (4.0-60.3) pg/mL NT-Pro-B Natriuret Pep (<=125) pg/mL Total Protein (6.0-8.0) g/dL Albumin (3.2-4.6) g/dL Globulin g/dL Albumin/Globulin Ratio SARS Virus RNA (PCR) Negative (NEGATIVE) Result Diagrams: 02/14/20 10:00 02/14/20 10:00 Sepsis Event Note - Evaluation Sepsis Screening Result: No Definite Risk - Focused Exam Vital Signs: Vital Signs Temp Pulse Resp BP Pulse Ox 02/14/20 15:52 98.1 F 96 17 149/85 H 98 02/14/20 13:32 103 H 19 152/82 H 98 02/14/20 13:21 98.1 F 98 18 167/90 H 98 02/14/20 08:56 98.2 F 99 19 156/87 H 98 Date Exam was Performed: 02/14/20 Time Exam was Performed: 16:52 - Problem List (1) Anemia SNOMED Code(s): 009448466 ICD Code: D64.9 - ANEMIA, UNSPECIFIED Status: Acute Current Visit: Yes Qualifiers: Anemia type: unspecified type Qualified Code(s): D64.9 - Anemia, unspecified (2) Hypocalcemia SNOMED Code(s): 5029830 ICD Code: E83.51 - HYPOCALCEMIA Status: Acute Current Visit: Yes (3) Hypoalbuminemia SNOMED Code(s): 220803636 ICD Code: E88.09 - OTH DISORDERS OF PLASMA-PROTEIN METABOLISM, NEC Status: Acute Current Visit: Yes (4) New onset of congestive heart failure SNOMED Code(s): 91235564 ICD Code: I50.9 - HEART FAILURE, UNSPECIFIED Status: Acute Current Visit: Yes Problem Details: Diastolic dysfunction (5) COLD, Chronic obstructive lung disease SNOMED Code(s): 36727704 ICD Code: J44.9 - CHRONIC OBSTRUCTIVE PULMONARY DISEASE, UNSPECIFIED Status: Chronic Priority: Medium Current Visit: No Problem Details: cont. albuterol MDI (6) Diabetes mellitus type 2 SNOMED Code(s): 66099712 ICD Code: E11.9 - TYPE 2 DIABETES MELLITUS WITHOUT COMPLICATIONS Status: Chronic Priority: High Current Visit: No Problem Details: Off metformin, Accucheck normal, continue to monitor. (7) HTN, Benign hypertension SNOMED Code(s): 88237169 ICD Code: I10 - ESSENTIAL (PRIMARY) HYPERTENSION Status: Chronic Priority: Medium Current Visit: No Problem Details: Cont. metoprolol. (8) Hyperlipidemia SNOMED Code(s): 92912717 ICD Code: E78.5 - HYPERLIPIDEMIA, UNSPECIFIED Status: Chronic Priority: Medium Current Visit: No Problem Details: Hold simvastatin, may resume as outpt. (9) Aortic regurgitation SNOMED Code(s): 64736662 ICD Code: I35.1 - NONRHEUMATIC AORTIC (VALVE) INSUFFICIENCY Status: Acute Current Visit: Yes (10) Aortic stenosis SNOMED Code(s): 69443034 ICD Code: I35.0 - NONRHEUMATIC AORTIC (VALVE) STENOSIS Status: Acute Current Visit: Yes (11) Tobacco abuse SNOMED Code(s): 423166327 ICD Code: Z72.0 - TOBACCO USE Status: Acute Current Visit: Yes Problem List Initiated/Reviewed/Updated: Yes Orders Last 24hrs: Active Orders 24 hr Category Date Time Status Patient Status [ADT] Routine ADT 02/14/20 14:15 Active Accu Check [Blood Glucose Check, Bedside] [] BIDMEALS Care 02/14/20 16:48 Ordered Height and Weight [RC] DAILY Care 02/14/20 14:15 Active Intake and Output [RC] QSHIFT Care 02/14/20 14:17 Active Oxygen Therapy [RC] PRN Care 02/14/20 14:15 Active Pulse Oximetry [RC] CONTINUOUS Care 02/14/20 14:17 Active RT Aerosol Therapy [RC] ASDIRECTED Care 02/14/20 09:28 Active RT Post Treatment Assessment [RC] Click to Edit Care 02/14/20 16:47 Ordered Up With Assistance [RC] ASDIRECTED Care 02/14/20 14:15 Active Up ad [place] [RC] ASDIRECTED Care 02/14/20 16:46 Ordered VTE/DVT Education [RC] Per Unit Routine Care 02/14/20 14:15 Active Vital Signs [RC] Q4H Care 02/14/20 14:15 Active Carbohydrate Counting [Consistent Carbohydrate Diet] [ Diet 02/15/20 Breakfast Ordered DIET] CXR [Chest 2V] [CR] Routine Exams 02/15/20 06:00 Ordered BASIC METABOLIC PANEL,BMP [CHEM] AM Lab 02/15/20 05:11 Ordered CBC WITH AUTO DIFF [HEME] AM Lab 02/15/20 05:11 Ordered D Dimer [D-DIMER QUANTITATIVE] [COAG] Routine Lab 02/14/20 16:52 Ordered FERRITIN, SERUM Routine Lab 02/14/20 16:49 Ordered Guaiac [OCCULT BLOOD DIAGNOSTIC] [OP] Routine Lab 02/14/20 16:48 Ordered Guaiac [OCCULT BLOOD DIAGNOSTIC] [OP] Routine Lab 02/15/20 16:49 Ordered IRON AND TIBC Routine Lab 02/14/20 16:49 Ordered RETICULOCYTE COUNT Routine Lab 02/14/20 16:48 Ordered Albuterol [Ventolin HFA] Med 02/14/20 16:46 Ordered 2 puff INH Q4HR PRN Budesonide/Formoterol [Symbicort 160-4.5 MCG] Med 02/14/20 21:00 Ordered 2 puff INH BID Docusate Sodium/Sennosides [Senna Plus] Med 02/14/20 14:15 Active 1 tab PO BID PRN Enoxaparin [Lovenox] Med 02/14/20 14:30 Active 40 mg SUBCUT Q24H Escitalopram [Lexapro] Med 02/15/20 09:00 Ordered 20 mg PO DAILY Insulin Glarg,Human.Rec.Analog [LantUS Solostar] Med 02/14/20 21:00 Ordered 8 units SUBCUT BEDTIME Lidocaine 2% [Xylocaine 2% Jelly] Med 02/14/20 16:46 Ordered 1 applic TOP DAILY PRN Lidocaine 5% [Lidoderm 5%] Med 02/14/20 16:46 Ordered 700 mg TOP DAILY PRN Metoprolol Succinate [Toprol XL] Med 02/15/20 09:00 Ordered 100 mg PO DAILY Montelukast [Singulair] Med 02/14/20 21:00 Ordered 10 mg PO BEDTIME Nicotine [Habitrol] Med 02/14/20 17:00 Ordered 21 mg TRDERM DAILY Ondansetron [Zofran] Med 02/14/20 14:15 Active 4 mg IVPUSH Q4H PRN Pantoprazole [ProTONIX Granules] Med 02/15/20 09:00 Ordered 40 mg PO DAILY Pregabalin [Lyrica] Med 02/14/20 21:00 Ordered 25 mg PO BID Simvastatin [Zocor] Med 02/15/20 09:00 Ordered 40 mg PO DAILY Sodium Chloride 0.9% [Saline Flush] Med 02/14/20 12:44 Active 10 ml FLUSH ASDIRECTED PRN Topiramate [Topamax] Med 02/15/20 09:00 Ordered 50 mg PO DAILY Zolpidem [Ambien] Med 02/14/20 14:15 Active 5 mg PO BEDTIME PRN amLODIPine [Norvasc] Med 02/15/20 09:00 Ordered 10 mg PO DAILY glipiZIDE [Glucotrol XL] Med 02/15/20 09:00 Ordered 2.5 mg PO DAILY lisinopriL [Prinivil] Med 02/15/20 09:00 Ordered 20 mg PO DAILY Saline Lock Insert [OM.PC] Routine Oth 02/14/20 12:44 Ordered Sequential Compression Device [OM.PC] Per Unit Routine Oth 02/14/20 14:18 Ordered Resuscitation Status Routine Resus Stat 02/14/20 14:15 Ordered Medication Orders Albuterol (Ventolin Hfa) gm INH Q4HR PRN PRN Reason: Shortness of Breath Amlodipine Besylate (Norvasc) 10 mg PO DAILY [facility] Enoxaparin Sodium (Lovenox) 40 mg SUBCUT Q24H [facility] Last Admin: 02/14/20 14:40 Dose: 40 mg Documented by: JACOB Escitalopram Oxalate (Lexapro) 20 mg PO DAILY [facility] Glipizide (Glucotrol Xl) 2.5 mg PO DAILY [facility] Insulin Glargine (Lantus Solostar) 8 units SUBCUT BEDTIME [facility] Lidocaine (Lidoderm 5%) 700 mg TOP DAILY PRN PRN Reason: back pain Lidocaine HCl (Xylocaine 2% Jelly) ml TOP DAILY PRN PRN Reason: Pain Lisinopril (Prinivil) 20 mg PO DAILY [facility] Metoprolol Succinate (Toprol Xl) 100 mg PO DAILY [facility] Montelukast Sodium (Singulair) 10 mg PO BEDTIME [facility] Nicotine (Habitrol) 21 mg TRDERM DAILY [facility] Non-Formulary Medication (Budesonide/Formoterol [Symbicort 160-4.5 Mcg]) 2 puff INH BID [facility] Non-Formulary Medication (Pantoprazole [Protonix Granules]) 40 mg PO DAILY [facility] Ondansetron HCl (Zofran) 4 mg IVPUSH Q4H PRN PRN Reason: Nausea/Vomiting Pregabalin (Lyrica) 25 mg PO BID [facility] Senna/Docusate Sodium (Senna Plus) 1 tab PO BID PRN PRN Reason: Constipation Simvastatin (Zocor) 40 mg PO DAILY [facility] Sodium Chloride (Saline Flush) 10 ml FLUSH ASDIRECTED PRN PRN Reason: Keep Vein Open Topiramate (Topamax) 50 mg PO DAILY [facility] Zolpidem Tartrate (Ambien) 5 mg PO BEDTIME PRN PRN Reason: Sleep Assessment/Plan Comment:: 1. Admit for observation. 2. The patient elects to be a full code. 3. Lovenox 40 mg subcutaneous every 24 hours for the VTE prophylaxis 4. Up ad [place]. 5. Order EKG today and a chest x-ray two-view for the a.m. 6. Iron studies for her maintenance anemia 7. She was given Lasix in the ER and she is improved. I will not repeat any Lasix today. 8. She had a echocardiogram on 11/30/19 in the clinic and I printed a copy of. 9. Oral calcium 10. Restart her home medications. She is already on beta apolinar and an AARON inhibitor. 11. Smoking cessation discussed and will put her on a nicotine patch. 12. Diabetic diet. Use her long-acting insulin and hold her short acting insulin. Continue glyburide. Check blood sugars twice a day. - Mortality Measure Prognosis:: Good
[2020-02-14] MEDS: Acetaminophen 325 MG Tab PO PRN ×2 (17:29→23:31)
[2020-02-14] MEDS: Nicotine 21 MG/24 Hr Patch TRDERM SCH (17:29)
[2020-02-14] MEDS ORDERED: Insulin Lispro 100 Unit/ML 3 ML KwikPen SUBCUT ONE (17:52)
[2020-02-14] MEDS ORDERED: Iopamidol 755 Mg/ML 100 ML Bottle IV ONE (18:05)
[2020-02-14] MEDS: NOVOLOG FLEX SUBCUT SCH ×2 (18:50→21:44)
[2020-02-14] MEDS: Pregabalin 25 MG Cap PO SCH (20:47)
[2020-02-14] MEDS ORDERED: Simvastatin 40 MG Tab *PTOM PO SCH (21:00)
[2020-02-14] MEDS ORDERED: Furosemide 40 MG/4 ML VIAL IVPUSH SCH (21:00)
[2020-02-14] MEDS ORDERED: INSULIN GLARGINE SUBCUT SCH (21:00)
[2020-02-14] MEDS ORDERED: Non-Formulary Medication 1 Each (Budesonide/Formoterol [Symbicort 160-4.5 Mcg] 2 PUFF) INH SCH (21:00)
[2020-02-14] MEDS ORDERED: Calcium Carbonate 500 MG Tablet PO SCH (21:00)
[2020-02-14] MEDS ORDERED: Montelukast 10 MG Tab *PTOM PO SCH (21:00)
[2020-02-14] MEDS ORDERED: Insulin Lispro 100 Unit/ML 3 ML KwikPen SUBCUT STA (21:40)
[2020-02-14] MEDS ORDERED: NOVOLOG FLEX SUBCUT ONE (22:00)
--- NOTE | 2020-02-15 07:46 | PCM.PN ---
- General Info Date of Service: 02/15/20 Admission Dx/Problem (Free Text): He should feels much better today. She has no shortness of breath. She still has a little bit of a cough. She says her abdomen is gone down and she denies any leg swelling today. - Patient Data Vitals - Most Recent: Last Vital Signs Temp 97.9 F 02/15/20 03:34 Pulse 102 H 02/15/20 03:34 Resp 18 02/15/20 03:34 BP 152/82 H 02/15/20 03:34 Pulse Ox 98 02/15/20 03:34 Weight - Most Recent: 157 lb 1 oz I&O - Last 24 Hours: Intake & Output 02/14/20 02/15/20 02/15/20 22:59 06:59 14:59 Intake Total 1500 300 Output Total 1750 1500 Balance -250 -1200 Lab Results Last 24 Hours: Laboratory Results - last 24 hr 02/14/20 02/14/20 02/14/20 Range/Units 10:00 10:00 10:00 WBC 11.4 (4.5-12.0) X10-3/uL RBC 3.05 L (3.23-5.20) x10(6)uL Hgb 8.5 L (11.5-15.5) g/dL Hct 27.4 L (30.0-51.3) % MCV 89.6 (80-96) fL MCH 27.8 (27.7-33.6) pg MCHC 31.0 L (32.2-35.4) g/dL RDW 18.9 H (11.5-15.5) % Plt Count 316 (125-369) X10(3)uL MPV 8.6 (7.4-10.4) fL Neut % (Auto) 59.6 (46-82) % Lymph % (Auto) 29.0 (13-37) % [facility] % (Auto) 9.8 (4-12) % Eos % (Auto) 1 (1.0-5.0) % Baso % (Auto) 1 (0-2) % Neut # (Auto) 6.8 (1.6-8.3) # Lymph # (Auto) 3.3 (0.6-5.0) # [facility] # (Auto) 1.1 (0.0-1.3) # Eos # (Auto) 0.1 (0.0-0.8) # Baso # (Auto) 0.1 (0.0-0.2) # D-Dimer, Quantitative (0.0-0.59) mg/LFEU Sodium 136 (135-145) mmol/L Potassium 3.8 (3.5-5.3) mmol/L Chloride 104 (100-110) mmol/L Carbon Dioxide 23 (21-32) mmol/L BUN 20 H (7-18) mg/dL Creatinine 0.9 (0.55-1.02) mg/dL Est Cr Clr Drug Dosing TNP Estimated GFR (MDRD) > 60 (>60) BUN/Creatinine Ratio 22.2 H (9-20) Glucose 271 H D (80-116) mg/dL POC Glucose (80-116) mg/dL Calcium 8.1 L (8.6-10.2) mg/dL Total Bilirubin 0.6 (0.1-1.3) mg/dL AST 25 D (5-25) IU/L ALT 37 H D (12-36) U/L Alkaline Phosphatase 112 (56-112) IU/L Troponin I 37.2 (4.0-60.3) pg/mL NT-Pro-B Natriuret Pep 38655 H* (<=125) pg/mL Total Protein 6.7 (6.0-8.0) g/dL Albumin 2.4 L (3.2-4.6) g/dL Globulin 4.3 g/dL Albumin/Globulin Ratio 0.6 SARS Virus RNA (PCR) (NEGATIVE) 02/14/20 02/14/20 02/14/20 Range/Units 10:00 10:05 17:30 WBC (4.5-12.0) X10-3/uL RBC (3.23-5.20) x10(6)uL Hgb (11.5-15.5) g/dL Hct (30.0-51.3) % MCV (80-96) fL MCH (27.7-33.6) pg MCHC (32.2-35.4) g/dL RDW (11.5-15.5) % Plt Count (125-369) X10(3)uL MPV (7.4-10.4) fL Neut % (Auto) (46-82) % Lymph % (Auto) (13-37) % [facility] % (Auto) (4-12) % Eos % (Auto) (1.0-5.0) % Baso % (Auto) (0-2) % Neut # (Auto) (1.6-8.3) # Lymph # (Auto) (0.6-5.0) # [facility] # (Auto) (0.0-1.3) # Eos # (Auto) (0.0-0.8) # Baso # (Auto) (0.0-0.2) # D-Dimer, Quantitative 2.17 H (0.0-0.59) mg/LFEU Sodium (135-145) mmol/L Potassium (3.5-5.3) mmol/L Chloride (100-110) mmol/L Carbon Dioxide (21-32) mmol/L BUN (7-18) mg/dL Creatinine (0.55-1.02) mg/dL Est Cr Clr Drug Dosing Estimated GFR (MDRD) (>60) BUN/Creatinine Ratio (9-20) Glucose (80-116) mg/dL POC Glucose 446 H* (80-116) mg/dL Calcium (8.6-10.2) mg/dL Total Bilirubin (0.1-1.3) mg/dL AST (5-25) IU/L ALT (12-36) U/L Alkaline Phosphatase (56-112) IU/L Troponin I (4.0-60.3) pg/mL NT-Pro-B Natriuret Pep (<=125) pg/mL Total Protein (6.0-8.0) g/dL Albumin (3.2-4.6) g/dL Globulin g/dL Albumin/Globulin Ratio SARS Virus RNA (PCR) Negative (NEGATIVE) 02/14/20 02/14/20 02/15/20 Range/Units 17:40 21:10 06:20 WBC 10.1 (4.5-12.0) X10-3/uL RBC 3.05 L (3.23-5.20) x10(6)uL Hgb 8.2 L (11.5-15.5) g/dL Hct 27.0 L (30.0-51.3) % MCV 88.8 (80-96) fL MCH 26.9 L (27.7-33.6) pg MCHC 30.3 L (32.2-35.4) g/dL RDW 19.8 H (11.5-15.5) % Plt Count 333 (125-369) X10(3)uL MPV 8.5 (7.4-10.4) fL Neut % (Auto) 53.8 (46-82) % Lymph % (Auto) 36.5 (13-37) % [facility] % (Auto) 8.6 (4-12) % Eos % (Auto) 1 (1.0-5.0) % Baso % (Auto) 0 (0-2) % Neut # (Auto) 5.4 (1.6-8.3) # Lymph # (Auto) 3.7 (0.6-5.0) # [facility] # (Auto) 0.9 (0.0-1.3) # Eos # (Auto) 0.1 (0.0-0.8) # Baso # (Auto) 0.0 (0.0-0.2) # D-Dimer, Quantitative (0.0-0.59) mg/LFEU Sodium (135-145) mmol/L Potassium (3.5-5.3) mmol/L Chloride (100-110) mmol/L Carbon Dioxide (21-32) mmol/L BUN (7-18) mg/dL Creatinine (0.55-1.02) mg/dL Est Cr Clr Drug Dosing Estimated GFR (MDRD) (>60) BUN/Creatinine Ratio (9-20) Glucose 484 H* D 525 H* (80-116) mg/dL POC Glucose (80-116) mg/dL Calcium (8.6-10.2) mg/dL Total Bilirubin (0.1-1.3) mg/dL AST (5-25) IU/L ALT (12-36) U/L Alkaline Phosphatase (56-112) IU/L Troponin I (4.0-60.3) pg/mL NT-Pro-B Natriuret Pep (<=125) pg/mL Total Protein (6.0-8.0) g/dL Albumin (3.2-4.6) g/dL Globulin g/dL Albumin/Globulin Ratio SARS Virus RNA (PCR) (NEGATIVE) 02/15/20 Range/Units 06:20 WBC (4.5-12.0) X10-3/uL RBC (3.23-5.20) x10(6)uL Hgb (11.5-15.5) g/dL Hct (30.0-51.3) % MCV (80-96) fL MCH (27.7-33.6) pg MCHC (32.2-35.4) g/dL RDW (11.5-15.5) % Plt Count (125-369) X10(3)uL MPV (7.4-10.4) fL Neut % (Auto) (46-82) % Lymph % (Auto) (13-37) % [facility] % (Auto) (4-12) % Eos % (Auto) (1.0-5.0) % Baso % (Auto) (0-2) % Neut # (Auto) (1.6-8.3) # Lymph # (Auto) (0.6-5.0) # [facility] # (Auto) (0.0-1.3) # Eos # (Auto) (0.0-0.8) # Baso # (Auto) (0.0-0.2) # D-Dimer, Quantitative (0.0-0.59) mg/LFEU Sodium 136 (135-145) mmol/L Potassium 3.4 L (3.5-5.3) mmol/L Chloride 102 (100-110) mmol/L Carbon Dioxide 24 (21-32) mmol/L BUN 21 H (7-18) mg/dL Creatinine 0.8 (0.55-1.02) mg/dL Est Cr Clr Drug Dosing 61.86 Estimated GFR (MDRD) > 60 (>60) BUN/Creatinine Ratio 26.3 H (9-20) Glucose 204 H D (80-116) mg/dL POC Glucose (80-116) mg/dL Calcium 8.9 (8.6-10.2) mg/dL Total Bilirubin (0.1-1.3) mg/dL AST (5-25) IU/L ALT (12-36) U/L Alkaline Phosphatase (56-112) IU/L Troponin I (4.0-60.3) pg/mL NT-Pro-B Natriuret Pep (<=125) pg/mL Total Protein (6.0-8.0) g/dL Albumin (3.2-4.6) g/dL Globulin g/dL Albumin/Globulin Ratio SARS Virus RNA (PCR) (NEGATIVE) Robert Results Last 24 Hours: Microbiology 02/14/20 22:10 Stool Occult Blood (ROBERT) - Final Stool / Feces NEGATIVE OCCULT BLOOD REFERENCE RANGE: NEGATIVE Med Orders - Current: Current Medications Acetaminophen (Tylenol) 650 mg PO Q4H PRN PRN Reason: Pain Last Admin: 02/14/20 23:31 Dose: 650 mg Documented by: Albuterol (Ventolin Hfa) 0 gm INH Q4H PRN PRN Reason: Shortness of Breath Amlodipine Besylate (Norvasc) 10 mg PO DAILY [facility] Calcium Carbonate/Glycine (Oyster Shell Calcium) 500 mg PO BID [facility] Enoxaparin Sodium (Lovenox) 40 mg SUBCUT Q24H [facility] Last Admin: 02/14/20 14:40 Dose: 40 mg Documented by: Escitalopram Oxalate (Lexapro) 20 mg PO DAILY [facility] Glipizide (Glucotrol Xl) 2.5 mg PO DAILY [facility] Insulin Glargine (Lantus Solostar) 8 units SUBCUT BEDTIME [facility] Last Admin: 02/14/20 21:59 Dose: 8 units Documented by: Lidocaine (Lidoderm 5%) 700 mg TOP DAILY PRN PRN Reason: back pain Lidocaine HCl (Xylocaine 2% Jelly) ml TOP DAILY PRN PRN Reason: Pain Lisinopril (Prinivil) 20 mg PO DAILY [facility] Metoprolol Succinate (Toprol Xl) 100 mg PO DAILY [facility] Montelukast Sodium (Singulair) 10 mg PO BEDTIME [facility] Last Admin: 02/14/20 20:47 Dose: Not Given Documented by: Nicotine (Habitrol) 21 mg TRDERM Q24H [facility] Last Admin: 02/14/20 17:29 Dose: 21 mg Documented by: Non-Formulary Medication (Budesonide/Formoterol [Symbicort 160-4.5 Mcg]) 2 puff INH BID [facility] Pantoprazole Sodium (Protonix) 40 mg PO DAILY [facility] Novolog Flex Pen *Pt (Own Med*) 0 each SUBCUT QIDACANDBED [facility]; Protocol Last Admin: 02/14/20 21:44 Dose: Not Given Documented by: Pregabalin (Lyrica) 25 mg PO BID [facility] Last Admin: 02/14/20 20:47 Dose: Not Given Documented by: Senna/Docusate Sodium (Senna Plus) 1 tab PO BID PRN PRN Reason: Constipation Simvastatin (Zocor) 40 mg PO BEDTIME [facility] Last Admin: 02/14/20 20:47 Dose: Not Given Documented by: Sodium Chloride (Saline Flush) 10 ml FLUSH ASDIRECTED PRN PRN Reason: Keep Vein Open Last Admin: 02/14/20 13:00 Dose: 10 ml Documented by: Topiramate (Topamax) 50 mg PO DAILY [facility] Zolpidem Tartrate (Ambien) 5 mg PO BEDTIME PRN PRN Reason: Sleep Discontinued Medications Albuterol/Ipratropium (Duoneb 3.0-0.5 Mg/3 Ml) 3 ml NEB ONETIME ONE Stop: 02/14/20 09:25 Last Admin: 02/14/20 09:40 Dose: 3 ml Documented by: Furosemide (Lasix) 60 mg IVPUSH NOW STA Stop: 02/14/20 12:45 Furosemide (Lasix) 40 mg IVPUSH NOW ONE Stop: 02/14/20 13:07 Last Admin: 02/14/20 13:12 Dose: 40 mg Documented by: Furosemide (Lasix) 40 mg IVPUSH BIDDIURETIC [facility] Hydralazine HCl (Apresoline) 20 mg IVPUSH ONETIME ONE Stop: 02/14/20 12:55 Last Admin: 02/14/20 13:18 Dose: 20 mg Documented by: Insulin Human Lispro (Humalog) 10 unit SUBCUT NOW ONE Stop: 02/14/20 17:53 Last Admin: 02/14/20 18:57 Dose: Not Given Documented by: Insulin Human Lispro (Humalog) 20 unit SUBCUT NOW STA Stop: 02/14/20 21:41 Last Admin: 02/14/20 22:20 Dose: Not Given Documented by: Iopamidol (Isovue-370 (76%)) 100 ml IV . DIRECTED ONE Stop: 02/14/20 18:06 Last Admin: 02/14/20 18:29 Dose: 100 ml Documented by: Methylprednisolone Sodium Succinate (Solu-Medrol) 125 mg IM ONETIME ONE Stop: 02/14/20 09:31 Last Admin: 02/14/20 09:43 Dose: 125 mg Documented by: Metolazone (Zaroxolyn) 5 mg PO ONETIME ONE Stop: 02/14/20 12:45 Last Admin: 02/14/20 13:12 Dose: 5 mg Documented by: Ondansetron HCl (Zofran) 4 mg IVPUSH Q4H PRN PRN Reason: Nausea/Vomiting Novolog Flex Pen *Pt (Own Med*) 0 each SUBCUT ONETIME ONE; Protocol Stop: 02/14/20 22:01 Last Admin: 02/14/20 22:03 Dose: 20 each Documented by: - Exam General: Alert, Oriented Lungs: Clear to Auscultation, Normal Respiratory Effort. No: Crackles, Rales, Rhonchi Cardiovascular: Regular Rate, Regular Rhythm, Murmurs Sepsis Event Note - Evaluation Sepsis Screening Result: No Definite Risk - Focused Exam Vital Signs: Vital Signs Temp Pulse Resp BP Pulse Ox 02/15/20 03:34 97.9 F 102 H 18 152/82 H 98 02/15/20 00:00 98.2 F 104 H 18 156/82 H 93 L 02/14/20 20:00 99.0 F 107 H 18 148/82 H 98 Date Exam was Performed: 02/15/20 Time Exam was Performed: 07:43 - Problem List & Annotations (1) Anemia SNOMED Code(s): 774617173 Code(s): D64.9 - ANEMIA, UNSPECIFIED Status: Acute Current Visit: Yes Qualifiers: Anemia type: unspecified type Qualified Code(s): D64.9 - Anemia, unspecified (2) Hypocalcemia SNOMED Code(s): 0205204 Code(s): E83.51 - HYPOCALCEMIA Status: Acute Current Visit: Yes (3) Hypoalbuminemia SNOMED Code(s): 218739348 Code(s): E88.09 - OTH DISORDERS OF PLASMA-PROTEIN METABOLISM, NEC Status: Acute Current Visit: Yes (4) Diabetes mellitus type 2 SNOMED Code(s): 67953283 Code(s): E11.9 - TYPE 2 DIABETES MELLITUS WITHOUT COMPLICATIONS Status: Chronic Priority: High Current Visit: No Annotation/Comment:: Off met formin, Accucheck normal, continue to monitor. (5) HTN, Benign hypertension SNOMED Code(s): 55545886 Code(s): I10 - ESSENTIAL (PRIMARY) HYPERTENSION Status: Chronic Priority: Medium Current Visit: No Annotation/Comment:: Cont. metoprolol. (6) Hyperlipidemia SNOMED Code(s): 17039952 Code(s): E78.5 - HYPERLIPIDEMIA, UNSPECIFIED Status: Chronic Priority: Medium Current Visit: No Annotation/Comment:: Hold simvastatin, may resume as outpt. (7) Aortic regurgitation SNOMED Code(s): 03139785 Code(s): I35.1 - NONRHEUMATIC AORTIC (VALVE) INSUFFICIENCY Status: Acute Current Visit: Yes (8) Aortic stenosis SNOMED Code(s): 11764756 Code(s): I35.0 - NONRHEUMATIC AORTIC (VALVE) STENOSIS Status: Acute Current Visit: Yes (9) Tobacco abuse SNOMED Code(s): 113505297 Code(s): Z72.0 - TOBACCO USE Status: Acute Current Visit: Yes (10) Pleural effusion SNOMED Code(s): 83247774 Code(s): J90 - PLEURAL EFFUSION, NOT ELSEWHERE CLASSIFIED Status: Acute Current Visit: Yes (11) COPD (chronic obstructive pulmonary disease) SNOMED Code(s): 82185657 Code(s): J44.9 - CHRONIC OBSTRUCTIVE PULMONARY DISEASE, UNSPECIFIED Status: Acute Current Visit: Yes - Problem List Review Problem List Initiated/Reviewed/Updated: Yes - My Orders Last 24 Hours: My Active Orders 02/14/20 16:46 [place] [RC] ASDIRECTED Albuterol [Ventolin HFA] 0 gm INH Q4H PRN Lidocaine 2% [Xylocaine 2% Jelly] DOSE ml TOP DAILY PRN Lidocaine 5% [Lidoderm 5%] 700 mg TOP DAILY PRN 02/14/20 17:00 Nicotine [Habitrol] 21 mg TRDERM Q24H 02/14/20 17:04 EKG 12 Lead [EK] Routine 02/14/20 17:14 Acetaminophen [Tylenol] 650 mg PO Q4H PRN 02/14/20 17:49 Ang Chest [CT] Routine 02/14/20 17:50 Accu Check [Blood Glucose Check, Bedside] [RC] QIDACANDBED 02/14/20 21:00 Budesonide/Formoterol [Symbicort 160-4.5 MCG] 2 puff INH BID Calcium Carbonate [Oyster Shell Calcium] 500 mg PO BID Insulin Glarg,Human.Rec.Analog [LantUS Solostar] 8 units SUBCUT BEDTIME Montelukast [Singulair] 10 mg PO BEDTIME Patient's Own Medication [Ptom] See Protocol SUBCUT QIDACANDBED Pregabalin [Lyrica] 25 mg PO BID Simvastatin [Zocor] 40 mg PO BEDTIME 02/15/20 06:00 CXR [Chest 2V] [CR] Routine 02/15/20 06:20 FERRITIN, SERUM Routine IRON AND TIBC Routine RETICULOCYTE COUNT Routine 02/15/20 Breakfast Carbohydrate Counting [Consistent Carbohydrate Diet] [DIET] 02/15/20 07:42 Discontinue Telemetry Monitoring [Cardiac Monitoring Discontinue] [RC] Click to Edit 02/15/20 09:00 Escitalopram [Lexapro] 20 mg PO DAILY Furosemide [Lasix] 20 mg PO DAILY Metoprolol Succinate [Toprol XL] 100 mg PO DAILY Pantoprazole [ProTONIX] 40 mg PO DAILY Topiramate [Topamax] 50 mg PO DAILY amLODIPine [Norvasc] 10 mg PO DAILY glipiZIDE [Glucotrol XL] 2.5 mg PO DAILY lisinopriL [Prinivil] 20 mg PO DAILY 02/15/20 16:49 Guaiac [OCCULT BLOOD DIAGNOSTIC] [OP] Routine - Plan Plan:: 1. CAT scan reviewed which showed no pneumonia, PE. Has cellulitis changes and small pleural effusions. 2. Discontinue telemetry 3. Vitals every 8 hours 4. Lasix 20 mg a day. 5. Hold antibiotics and steroids. 6. Continue to treat hyperglycemia.
[2020-02-15] MEDS ORDERED: Metoprolol Succinate 100 MG Tab.ER *PTOM PO SCH (09:00)
[2020-02-15] MEDS ORDERED: amLODIPine 10 MG Tab PO SCH (09:00)
[2020-02-15] MEDS ORDERED: Lisinopril 20 MG Tab PO SCH (09:00)
[2020-02-15] MEDS ORDERED: Pantoprazole 40 MG Tab.CR *PTOM PO SCH (09:00)
[2020-02-15] MEDS ORDERED: TOPIRAMATE 50 MG PO SCH (09:00)
[2020-02-15] MEDS ORDERED: Furosemide 40 MG/4 ML VIAL IVPUSH SCH (09:00)
[2020-02-15] MEDS ORDERED: Escitalopram 20 MG Tab *PTOM PO SCH (09:00)
[2020-02-15] MEDS ORDERED: glipiZIDE 2.5 MG Tab.ER PO SCH (09:00)
[2020-02-15] MEDS ORDERED: Furosemide 20 MG Tab PO SCH (09:00)
[2020-02-15] MEDS: NOVOLOG FLEX SUBCUT SCH ×2 (09:12→12:24)
[2020-02-15 09:19] VITALS: BP 146/90; PULSE 104
[2020-02-15] MEDS: Pregabalin 25 MG Cap PO SCH (09:19)
--- NOTE | 2020-02-15 10:38 | CR ---
INDICATION: CHF. CHEST, TWO VIEWS: PA and lateral views of the chest were obtained 02/15/20 and compared with 02/14/20 and 08/20/19. Flattening of diaphragm leafs is noted suggesting exacerbation of COPD. Heavy interstitial markings are noted which may be on the basis of pulmonary fibrosis although interstitial lung edema would be a consideration in this patient with slightly increased upper lung field pulmonary vasculature raising question of pulmonary vascular congestion. The heart, however, did not appear grossly enlarged although it was prominent and may be slightly enlarged. There appears to be blunting of the left costophrenic angle with indistinct right costophrenic angle raising additional question of some minimal infiltrate or tiny effusions. No gross consolidating pneumonia or large effusion was present. The aorta is slightly tortuous with calcification in the arch. Bony structures may be somewhat diminished in density raising the question of osteoporosis - correlate clinically. IMPRESSION: 1. Findings suggest the possible exacerbation of COPD. 2. ASHD and mild cardiomegaly with mild CHF and interstitial changes which may be on the basis of interstitial lung edema, although infection could also be present - correlate clinically. Findings may be associated with tiny pleural effusions. 3. Suggestion of demineralization which may be on the basis of osteoporosis - correlate clinically. MTDD
--- NOTE | 2020-02-15 13:06 | PCM.DCSUM1 ---
Discharge Summary - Hospital Course Free Text/Narrative:: Hospital course-she was given the 40 iv Lasix in the ER and had a good diuresis so was not repeated. The patient did well through the night. She had elevated d-dimer so she had a CT scan of the chest that showed severe emphysema in the upper lobes and some mild pleural effusions. No pneumonia or PE. Over the night patient felt well without any shortness of breath, low leg swelling or abdominal distention. Her 20 mg Lasix by mouth she did just fine. She is anemic and we did studies but they're pending. Her medicines were reviewed by the pharmacist and change. Sugar was elevated but she is been on steroids and I didn't repeat the steroids. We'll discharge her home on 20 mg Lasix a day and her regular medications. She'll follow-up with her primary provider in one week. Needs to do daily weights if she gains 5 pounds she needs to call. Low-salt diet. Smoking cessation was discussed in the hospital. Brief History: This is a 59-year-old female patient with known history of COPD and smoker comes in to the ER after being sent over by clinic with increasing shortness of breath. She says over the last month she's been getting more short of breath. She says her legs are swollen and her abdomen is bloated. She does have some wheezing but this feels different than when she has COPD. She's had been in the hospital for COPD. She does have a cough with whitish discharge she states. She denies fevers, chills, chest pain. Has little bit of runny nose. She says at first when she lays on she is more short of breath. She cannot walk as far as she is to walk. Diagnosis: Stroke: No - Discharge Data Discharge Date: 02/15/20 Discharge Disposition: Home, Self-Care 01 Condition: Good - Referral to Home Health Primary Care Physician: Trae Alexander MD - Discharge Diagnosis/Problem(s) (1) Anemia SNOMED Code(s): 799436751 ICD Code: D64.9 - ANEMIA, UNSPECIFIED Status: Acute Current Visit: Yes Qualifiers: Anemia type: unspecified type Qualified Code(s): D64.9 - Anemia, unspecified (2) Hypocalcemia SNOMED Code(s): 8698236 ICD Code: E83.51 - HYPOCALCEMIA Status: Acute Current Visit: Yes (3) Hypoalbuminemia SNOMED Code(s): 780547942 ICD Code: E88.09 - OTH DISORDERS OF PLASMA-PROTEIN METABOLISM, NEC Status: Acute Current Visit: Yes (4) Diabetes mellitus type 2 SNOMED Code(s): 94737465 ICD Code: E11.9 - TYPE 2 DIABETES MELLITUS WITHOUT COMPLICATIONS Status: Chronic Priority: High Current Visit: No Problem Details: Off metformin, Accucheck normal, continue to monitor. (5) HTN, Benign hypertension SNOMED Code(s): 46693215 ICD Code: I10 - ESSENTIAL (PRIMARY) HYPERTENSION Status: Chronic Priority: Medium Current Visit: No Problem Details: Cont. metoprolol. (6) Hyperlipidemia SNOMED Code(s): 22096018 ICD Code: E78.5 - HYPERLIPIDEMIA, UNSPECIFIED Status: Chronic Priority: Medium Current Visit: No Problem Details: Hold simvastatin, may resume as outpt. (7) Aortic regurgitation SNOMED Code(s): 66262849 ICD Code: I35.1 - NONRHEUMATIC AORTIC (VALVE) INSUFFICIENCY Status: Acute Current Visit: Yes (8) Aortic stenosis SNOMED Code(s): 75885595 ICD Code: I35.0 - NONRHEUMATIC AORTIC (VALVE) STENOSIS Status: Acute Current Visit: Yes (9) Tobacco abuse SNOMED Code(s): 986013657 ICD Code: Z72.0 - TOBACCO USE Status: Acute Current Visit: Yes (10) Pleural effusion SNOMED Code(s): 72723769 ICD Code: J90 - PLEURAL EFFUSION, NOT ELSEWHERE CLASSIFIED Status: Acute Current Visit: Yes (11) COPD (chronic obstructive pulmonary disease) SNOMED Code(s): 04029692 ICD Code: J44.9 - CHRONIC OBSTRUCTIVE PULMONARY DISEASE, UNSPECIFIED Status: Acute Current Visit: Yes - Patient Instructions Diet: Fluid Restriction Activity: As Tolerated Driving: May Drive Today Showering/Bathing: May Shower Other/Special Instructions: 1. Recheck with her primary provider in one week. 2. Low-salt diet. 3. Daily weights first thing in the morning after urination. If she gains 5 pounds she is to call the clinic. - Discharge Plan Prescriptions/Med Rec: Furosemide [Lasix] 20 mg PO DAILY #30 tablet Home Medications: Home Meds Albuterol Sulfate [Proair Hfa] 2 puff INH Q4HR PRN 03/20/13 [History] Topiramate 50 mg PO DAILY 03/20/13 [History] Lidocaine 2% [Xylocaine 2% Jelly] 1 applic TOP DAILY PRN 05/23/16 [History] Montelukast [Singulair] 10 mg PO BEDTIME 06/19/19 [History] Pantoprazole [ProTONIX Granules] 40 mg PO BID 06/19/19 [History] Pregabalin 25 mg PO BID 06/19/19 [History] Simvastatin 40 mg PO BEDTIME 06/19/19 [History] Budesonide/Formoterol [Symbicort 160-4.5 MCG] 2 puff INH BID 02/14/20 [History] Escitalopram Oxalate [Lexapro] 20 mg PO DAILY 02/14/20 [History] Insulin Aspart [NovoLOG] 10 units SUBCUT TIDMEALS 02/14/20 [History] Insulin Glargine,Hum.Rec.Anlog [Lantus Solostar] 8 units SUBCUT BEDTIME 02/14/20 [History] Lidocaine 5% [Lidoderm 5%] 700 mg TOP DAILY PRN 02/14/20 [History] Metoprolol Succinate 100 mg PO DAILY 02/14/20 [History] Thiamine HCl [Vitamin B-1] 100 mg PO DAILY 02/14/20 [History] Furosemide [Lasix] 20 mg PO DAILY #30 tablet 02/15/20 [Rx] Forms: ED Department Discharge Referrals: Trae Alexander MD [Primary Care Provider] - - Discharge Summary/Plan Comment DC Time >30 min.: No - Patient Data Vitals - Most Recent: Last Vital Signs Temp 97.9 F 02/15/20 09:10 Pulse 104 H 02/15/20 09:14 Resp 18 02/15/20 09:10 BP 146/90 H 02/15/20 09:14 Pulse Ox 98 02/15/20 09:10 Weight - Most Recent: 157 lb 1 oz I&O - Last 24 hours: Intake & Output 02/14/20 02/15/20 02/15/20 22:59 06:59 14:59 Intake Total 1500 300 Output Total 1750 1500 Balance -250 -1200 Lab Results - Last 24 hrs: Laboratory Results - last 24 hr 02/14/20 02/14/20 02/14/20 Range/Units 10:00 17:30 17:40 WBC (4.5-12.0) X10-3/uL RBC (3.23-5.20) x10(6)uL Hgb (11.5-15.5) g/dL Hct (30.0-51.3) % MCV (80-96) fL MCH (27.7-33.6) pg MCHC (32.2-35.4) g/dL RDW (11.5-15.5) % Plt Count (125-369) X10(3)uL MPV (7.4-10.4) fL Neut % (Auto) (46-82) % Lymph % (Auto) (13-37) % [place] % (Auto) (4-12) % Eos % (Auto) (1.0-5.0) % Baso % (Auto) (0-2) % Neut # (Auto) (1.6-8.3) # Lymph # (Auto) (0.6-5.0) # [place] # (Auto) (0.0-1.3) # Eos # (Auto) (0.0-0.8) # Baso # (Auto) (0.0-0.2) # D-Dimer, Quantitative 2.17 H (0.0-0.59) mg/LFEU Sodium (135-145) mmol/L Potassium (3.5-5.3) mmol/L Chloride (100-110) mmol/L Carbon Dioxide (21-32) mmol/L BUN (7-18) mg/dL Creatinine (0.55-1.02) mg/dL Est Cr Clr Drug Dosing mL/min Estimated GFR (MDRD) (>60) BUN/Creatinine Ratio (9-20) Glucose 484 H* D (80-116) mg/dL POC Glucose 446 H* (80-116) mg/dL Calcium (8.6-10.2) mg/dL 02/14/20 02/15/20 02/15/20 Range/Units 21:10 06:20 06:20 WBC 10.1 (4.5-12.0) X10-3/uL RBC 3.05 L (3.23-5.20) x10(6)uL Hgb 8.2 L (11.5-15.5) g/dL Hct 27.0 L (30.0-51.3) % MCV 88.8 (80-96) fL MCH 26.9 L (27.7-33.6) pg MCHC 30.3 L (32.2-35.4) g/dL RDW 19.8 H (11.5-15.5) % Plt Count 333 (125-369) X10(3)uL MPV 8.5 (7.4-10.4) fL Neut % (Auto) 53.8 (46-82) % Lymph % (Auto) 36.5 (13-37) % [place] % (Auto) 8.6 (4-12) % Eos % (Auto) 1 (1.0-5.0) % Baso % (Auto) 0 (0-2) % Neut # (Auto) 5.4 (1.6-8.3) # Lymph # (Auto) 3.7 (0.6-5.0) # [place] # (Auto) 0.9 (0.0-1.3) # Eos # (Auto) 0.1 (0.0-0.8) # Baso # (Auto) 0.0 (0.0-0.2) # D-Dimer, Quantitative (0.0-0.59) mg/LFEU Sodium 136 (135-145) mmol/L Potassium 3.4 L (3.5-5.3) mmol/L Chloride 102 (100-110) mmol/L Carbon Dioxide 24 (21-32) mmol/L BUN 21 H (7-18) mg/dL Creatinine 0.8 (0.55-1.02) mg/dL Est Cr Clr Drug Dosing 61.86 mL/min Estimated GFR (MDRD) > 60 (>60) BUN/Creatinine Ratio 26.3 H (9-20) Glucose 525 H* 204 H D (80-116) mg/dL POC Glucose (80-116) mg/dL Calcium 8.9 (8.6-10.2) mg/dL 30/20 Range/Units 11:39 WBC (4.5-12.0) X10-3/uL RBC (3.23-5.20) x10(6)uL Hgb (11.5-15.5) g/dL Hct (30.0-51.3) % MCV (80-96) fL MCH (27.7-33.6) pg MCHC (32.2-35.4) g/dL RDW (11.5-15.5) % Plt Count (125-369) X10(3)uL MPV (7.4-10.4) fL Neut % (Auto) (46-82) % Lymph % (Auto) (13-37) % [place] % (Auto) (4-12) % Eos % (Auto) (1.0-5.0) % Baso % (Auto) (0-2) % Neut # (Auto) (1.6-8.3) # Lymph # (Auto) (0.6-5.0) # [place] # (Auto) (0.0-1.3) # Eos # (Auto) (0.0-0.8) # Baso # (Auto) (0.0-0.2) # D-Dimer, Quantitative (0.0-0.59) mg/LFEU Sodium (135-145) mmol/L Potassium (3.5-5.3) mmol/L Chloride (100-110) mmol/L Carbon Dioxide (21-32) mmol/L BUN (7-18) mg/dL Creatinine (0.55-1.02) mg/dL Est Cr Clr Drug Dosing mL/min Estimated GFR (MDRD) (>60) BUN/Creatinine Ratio (9-20) Glucose (80-116) mg/dL POC Glucose 195 H D (80-116) mg/dL Calcium (8.6-10.2) mg/dL [place] Results - Last 24 hrs: Microbiology 02/14/20 22:10 Stool Occult Blood ([facility]) - Final Stool / Feces NEGATIVE OCCULT BLOOD REFERENCE RANGE: NEGATIVE Med Orders - Current: Current Medications Acetaminophen (Tylenol) 650 mg PO Q4H PRN PRN Reason: Pain Last Admin: 02/14/20 23:31 Dose: 650 mg Documented by: Albuterol (Ventolin Hfa) 0 gm INH Q4H PRN PRN Reason: Shortness of Breath Calcium Carbonate/Glycine (Oyster Shell Calcium) 500 mg PO BID [facility] Enoxaparin Sodium (Lovenox) 40 mg SUBCUT Q24H [facility] Last Admin: 02/14/20 14:40 Dose: 40 mg Documented by: Escitalopram Oxalate (Lexapro) 20 mg PO DAILY [facility] Last Admin: 02/15/20 09:14 Dose: 20 mg Documented by: Furosemide (Lasix) 20 mg PO DAILY [facility] Last Admin: 02/15/20 09:16 Dose: 20 mg Documented by: Glipizide (Glucotrol Xl) 2.5 mg PO DAILY [facility] Insulin Glargine (Lantus Solostar) 8 units SUBCUT BEDTIME [facility] Last Admin: 02/14/20 21:59 Dose: 8 units Documented by: Lidocaine (Lidoderm 5%) 700 mg TOP DAILY PRN PRN Reason: back pain Lidocaine HCl (Xylocaine 2% Jelly) 0 ml TOP DAILY PRN PRN Reason: Pain Metoprolol Succinate (Toprol Xl) 100 mg PO DAILY [facility] Last Admin: 02/15/20 09:14 Dose: 100 mg Documented by: Montelukast Sodium (Singulair) 10 mg PO BEDTIME [facility] Last Admin: 02/14/20 20:47 Dose: Not Given Documented by: Nicotine (Habitrol) 21 mg TRDERM Q24H [facility] Last Admin: 02/14/20 17:29 Dose: 21 mg Documented by: Non-Formulary Medication (Budesonide/Formoterol [Symbicort 160-4.5 Mcg]) 2 puff INH BID [facility] Pantoprazole Sodium (Protonix) 40 mg PO DAILY [facility] Last Admin: 02/15/20 09:15 Dose: 40 mg Documented by: Novolog Flex Pen *Pt (Own Med*) 0 each SUBCUT QIDACANDBED [facility]; Protocol Last Admin: 02/15/20 12:24 Dose: 3 each Documented by: Pregabalin (Lyrica) 25 mg PO BID [facility] Last Admin: 02/15/20 09:19 Dose: 25 mg Documented by: Senna/Docusate Sodium (Senna Plus) 1 tab PO BID PRN PRN Reason: Constipation Simvastatin (Zocor) 40 mg PO BEDTIME [facility] Last Admin: 02/14/20 20:47 Dose: Not Given Documented by: Sodium Chloride (Saline Flush) 10 ml FLUSH ASDIRECTED PRN PRN Reason: Keep Vein Open Last Admin: 02/14/20 13:00 Dose: 10 ml Documented by: Topiramate (Topamax) 50 mg PO DAILY [facility] Last Admin: 02/15/20 09:15 Dose: 50 mg Documented by: Zolpidem Tartrate (Ambien) 5 mg PO BEDTIME PRN PRN Reason: Sleep Discontinued Medications Albuterol/Ipratropium (Duoneb 3.0-0.5 Mg/3 Ml) 3 ml NEB ONETIME ONE Stop: 02/14/20 09:25 Last Admin: 02/14/20 09:40 Dose: 3 ml Documented by: Amlodipine Besylate (Norvasc) 10 mg PO DAILY [facility] Furosemide (Lasix) 60 mg IVPUSH NOW STA Stop: 02/14/20 12:45 Furosemide (Lasix) 40 mg IVPUSH NOW ONE Stop: 02/14/20 13:07 Last Admin: 02/14/20 13:12 Dose: 40 mg Documented by: Furosemide (Lasix) 40 mg IVPUSH BIDDIURETIC [facility] Hydralazine HCl (Apresoline) 20 mg IVPUSH ONETIME ONE Stop: 02/14/20 12:55 Last Admin: 02/14/20 13:18 Dose: 20 mg Documented by: Insulin Human Lispro (Humalog) 10 unit SUBCUT NOW ONE Stop: 02/14/20 17:53 Last Admin: 02/14/20 18:57 Dose: Not Given Documented by: Insulin Human Lispro (Humalog) 20 unit SUBCUT NOW STA Stop: 02/14/20 21:41 Last Admin: 02/14/20 22:20 Dose: Not Given Documented by: Iopamidol (Isovue-370 (76%)) 100 ml IV . DIRECTED ONE Stop: 02/14/20 18:06 Last Admin: 02/14/20 18:29 Dose: 100 ml Documented by: Lisinopril (Prinivil) 20 mg PO DAILY [facility] Methylprednisolone Sodium Succinate (Solu-Medrol) 125 mg IM ONETIME ONE Stop: 02/14/20 09:31 Last Admin: 02/14/20 09:43 Dose: 125 mg Documented by: Metolazone (Zaroxolyn) 5 mg PO ONETIME ONE Stop: 02/14/20 12:45 Last Admin: 02/14/20 13:12 Dose: 5 mg Documented by: Ondansetron HCl (Zofran) 4 mg IVPUSH Q4H PRN PRN Reason: Nausea/Vomiting Novolog Flex Pen *Pt (Own Med*) 0 each SUBCUT ONETIME ONE; Protocol Stop: 02/14/20 22:01 Last Admin: 02/14/20 22:03 Dose: 20 each Documented by:
[2020-02-15] MEDS: Nicotine 21 MG/24 Hr Patch TRDERM SCH (17:06)
[2020-02-15] MEDS: Enoxaparin 40 MG/0.4 ML Syringe SUBCUT SCH (17:06)
[2020-02-16 09:13] LABS: IRON BIND.CAP.(TIBC) 387 ug/dL (250-450); IRON SATURATION 4 % (15-55); IRON, SERUM 15 ug/dL (27-159); UIBC 372 ug/dL (131-425)
== END 2020-02-15 17:20 | disposition home or self-care (01) ==
LOC: FB.ED 08:55 → FB.MS 14:15
PROVIDERS: ADMIT Emergency Medicine; ATTEND Family Medicine
DX: J43.9 Emphysema, unspecified (principal); I11.0 Hypertensive heart disease with heart failure; I50.9 Heart failure, unspecified; E78.00 Pure hypercholesterolemia, unspecified; K21.9 Gastro-esophageal reflux disease without esophagitis; E11.9 Type 2 diabetes mellitus without complications; D64.9 Anemia, unspecified; E83.51 Hypocalcemia; I35.1 Nonrheumatic aortic (valve) insufficiency; I35.0 Nonrheumatic aortic (valve) stenosis; J90 Pleural effusion, not elsewhere classified; F17.200 Nicotine dependence, unspecified, uncomplicated; Z20.828 Contact with and (suspected) exposure to other viral communicable diseases; Z71.6 Tobacco abuse counseling; Z79.899 Other long term (current) drug therapy; Z88.0 Allergy status to penicillin; Z79.4 Long term (current) use of insulin
CPT/HCPCS: 36415; 71045; 71046; 71275; 80048; 80053; 82272; 82728; 82947; 82962; 83540; 83550; 83880; 84484; 85025; 85045; 85379; 93005; 94640; 96372; 96374; 96375; 99285-25; A9270-GY; J0360; J1650; J1815; J1940; J2930; J7620-GY; Q9967; U0002

== ENCOUNTER 2020-06-12 07:31 | Day surgery (SDC) | payer MEDICARE, MEDICAID ==
[~2020-06-12 07:31] MED LIST changes: -Ketorolac 60 MG/2 ML SDV IM ONE; +Lactated Ringers 1,000 ML IV SCH; -Ondansetron 4 MG/2 ML SDV IM ONE; +Sodium Chloride 0.9% 10 ML Syringe FLUSH PRN
[2020-06-12] MEDS ORDERED: Lidocaine 1% PF 2 ML SDV INJECT ONE (07:32)
[2020-06-12] MEDS ORDERED: Propofol 200 MG/20 ML SDV IV ONE (07:32)
--- NOTE | 2020-06-12 09:31 | PCM.OPNOTE ---
- General Post-Op/Procedure Note Date of Surgery/Procedure: 06/12/20 Operative Procedure(s): c scope with bx Findings: cecal polyp Pre Op Diagnosis: heme + stools Post-Op Diagnosis: cecal polyp Anesthesia Technique: IVANA Primary Surgeon: Caesar Coates Anesthesia Provider: Gregg Garcia Pathology: cecal polyp Complications: None Condition: Good Free Text/Narrative:: see dictation
[2020-06-12 10:05] VITALS: BP 114/92; PULSE 82
--- NOTE | 2020-06-12 14:28 | OR ---
DATE OF OPERATION: 06/12/2020 SURGEON: Caesar Coates MD PROCEDURE PERFORMED: Colonoscopy. PREOPERATIVE DIAGNOSIS: Heme-positive stools. POSTOPERATIVE DIAGNOSIS: Cecal polyp. INDICATIONS FOR PROCEDURE: This is a 59-year-old white female who is referred with the above-mentioned findings on exam. She was offered and accepted colonoscopy. She has had a recent EGD, so that was not felt to be indicated. DESCRIPTION OF PROCEDURE: After an excellent IV sedation was administered, digital rectal exam was performed. No marked abnormality was noted. The flexible colonoscope was inserted and advanced to the cecum. The prep was excellent. The following findings were noted: In the cecum, small polypoid lesion, biopsied with cold biopsy forceps and sent for permanent. Transverse colon unremarkable. Descending colon unremarkable. Sigmoid and rectum unremarkable. Colon was deflated as the scope was removed. The patient tolerated the procedure well and was taken to Recovery. Results will be sent to her via letter. /[id number] JEFF/ALLI
== END 2020-06-12 10:22 | disposition home or self-care (01) ==
LOC: FB.SDS 07:31
PROVIDERS: ATTEND Surgery
DX: D12.0 Benign neoplasm of cecum (principal); I13.0 Hypertensive heart and chronic kidney disease with heart failure and stage 1 through stage 4 chronic kidney disease, or unspecified chronic kidney disease; G43.909 Migraine, unspecified, not intractable, without status migrainosus; E11.22 Type 2 diabetes mellitus with diabetic chronic kidney disease; E66.9 Obesity, unspecified; G89.29 Other chronic pain; E11.42 Type 2 diabetes mellitus with diabetic polyneuropathy; K21.9 Gastro-esophageal reflux disease without esophagitis; J44.9 Chronic obstructive pulmonary disease, unspecified; F17.210 Nicotine dependence, cigarettes, uncomplicated; N18.9 Chronic kidney disease, unspecified; K86.1 Other chronic pancreatitis; Z79.899 Other long term (current) drug therapy; Z88.0 Allergy status to penicillin; Z88.8 Allergy status to other drugs, medicaments and biological substances; Z98.890 Other specified postprocedural states; Z68.30 Body mass index [BMI] 30.0-30.9, adult
CPT/HCPCS: 00811-QZ; 82962; 88305; J2001; J2704; J7120

== ENCOUNTER 2020-08-13 06:43 | Day surgery (SDC) | payer MEDICARE, MEDICAID ==
[2020-08-13] MEDS ORDERED: Midazolam 1 MG/ML 2 ML SDV IV ONE (06:44)
[2020-08-13] MEDS ORDERED: fentaNYL 100 MCG/2 ML SDV IV ONE (06:44)
[2020-08-13] MEDS ORDERED: Sodium Chloride 0.9% 10 ML Syringe FLUSH PRN (06:45)
[2020-08-13] MEDS: Lactated Ringers 1,000 ML IV SCH (07:15)
[2020-08-13] MEDS: Albuterol/Ipratropium 3.0-0.5 MG/3 ML Neb Soln NEB ONE (07:38)
[2020-08-13] MEDS: acetaZOLAMIDE 500 MG Cap.ER PO ONE (08:45)
[2020-08-13 09:10] VITALS: BP 118/64; PULSE 69
--- NOTE | 2020-08-13 09:32 | OR ---
DATE OF OPERATION: 08/13/2020 SURGEON: Annemarie Coyle MD PREOPERATIVE DIAGNOSIS: Visually significant cataract, right eye. POSTOPERATIVE DIAGNOSIS: Visually significant cataract, right eye. PROCEDURES PERFORMED: Phacoemulsification with intraocular lens placement, right eye. ASSISTANTS: None. ANESTHESIA: Local with sedation. COMPLICATIONS: None. BLOOD LOSS: None. IMPLANTS: Rakesh ACU0T0 20.0 Diopter lens implanted. CDE: 5.39. DESCRIPTION OF PROCEDURE: After risks and benefits were reviewed with the patient, consent was obtained in the preoperative area, and the operative eye was marked with a surgical pen. In the preoperative area, a pledget was used to dilate the pupil consisting of a mixture of phenylephrine 10%, cyclopentolate 2%, moxifloxacin 0.5%, and bupivacaine 0.75%. The patient was taken to the operating room, where a time-out was performed, and the patient was placed under monitored anesthesia care. Topical tetracaine was used for anesthesia. The operative eye was prepped and draped for ophthalmic surgery, and the microscope was brought into position and focused. A paracentesis incision was made, followed by injection of preservative-free 1% lidocaine into the anterior chamber, followed by injection of Viscoat into the anterior chamber. A microkeratome blade was used to make a corneal limbal incision temporally. A cystotome was used to make the beginning of the capsulorrhexis, which was carried around 360 degrees in a curvilinear fashion using Utrata forceps. A Antony cannula with BSS was used to hydrodissect and hydrodelineate the nucleus. The nucleus was removed in a divide and conquer manner using phacoemulsification. Irrigation and aspiration were used to remove the remaining cortical material. Provisc was used to inflate the capsular bag, and a pre-loaded Rakesh ACU0T0 20.0 diopter lens, serial number [id number] was injected into the capsular bag. A Sinskey hook was used to position and center the lens. Next, irrigation and aspiration was used to remove any remaining viscoelastic and cortical material from the anterior chamber. BSS on a cannula was used to inflate the anterior chamber and hydrate the wound. The wound was checked and found to be watertight. 1 mg of Moxifloxacin was injected into the anterior chamber. Drapes were removed and the eye was cleaned. A drop of brimonidine 0.15% and a drop of TobraDex was placed. The eye was shielded, and the patient was taken to the recovery room in stable condition. /[id number] SEDRICK/ALLI
== END 2020-08-13 09:20 | disposition home or self-care (01) ==
LOC: FB.SDS 06:43
PROVIDERS: ATTEND Ophthalmology
DX: E11.36 Type 2 diabetes mellitus with diabetic cataract (principal); H25.811 Combined forms of age-related cataract, right eye; J44.1 Chronic obstructive pulmonary disease with (acute) exacerbation; H25.12 Age-related nuclear cataract, left eye; H35.033 Hypertensive retinopathy, bilateral; I11.0 Hypertensive heart disease with heart failure; I50.9 Heart failure, unspecified; E78.2 Mixed hyperlipidemia; I35.1 Nonrheumatic aortic (valve) insufficiency; K21.9 Gastro-esophageal reflux disease without esophagitis; E11.40 Type 2 diabetes mellitus with diabetic neuropathy, unspecified; N17.9 Acute kidney failure, unspecified; E55.9 Vitamin D deficiency, unspecified; F17.210 Nicotine dependence, cigarettes, uncomplicated; Z79.899 Other long term (current) drug therapy; Z79.4 Long term (current) use of insulin; Z88.0 Allergy status to penicillin; Z88.8 Allergy status to other drugs, medicaments and biological substances; Z98.890 Other specified postprocedural states
CPT/HCPCS: 00142-QZ; 82962; 94640; A9270-GY; J2250; J3010; J7120; J7620-GY; V2632

== ENCOUNTER 2022-09-06 11:29 | Inpatient (IN) | payer MEDICARE, MEDICAID ==
[2022-09-06] MEDS ORDERED: Sodium Chloride 0.9% 1,000 ML IV ONE (11:52)
[2022-09-06 12:25] LABS: BASE EXCESS VENOUS,POC -3 mmol/L (-2 - 3+); PCO2 VENOUS,POC 33 mmHg (41-51); PH VENOUS,POC 7.41 pH Units (7.32-7.43)
[2022-09-06] MEDS: Sodium Chloride 0.9% 10 ML Syringe FLUSH PRN ×4 (12:26→16:32)
[2022-09-06 12:31] LABS: ESTIMATED GFR 46 mL/min (>60)
[2022-09-06] MEDS ORDERED: 50% Dextrose in Water 50 ML Syringe IVPUSH ONE (13:08)
[2022-09-06] MEDS ORDERED: Promethazine 25 MG Tab PO PRN (14:15)
[2022-09-06] MEDS ORDERED: Ondansetron 4 MG/2 ML SDV IV PRN (14:15)
[2022-09-06] MEDS ORDERED: Potassium Chloride 20 MEQ in Premix Bag 1 BAG IV ONE (14:17)
[2022-09-06] MEDS ORDERED: Albuterol 0.083% 2.5 MG/3 ML Neb Soln INH PRN (14:18)
[2022-09-06] MEDS: Sodium Chloride 0.9% 1,000 ML IV SCH ×2 (14:34→22:43)
[2022-09-06] MEDS ORDERED: SUMAtriptan 50 MG Tab PO PRN (14:44)
[2022-09-06] MEDS ORDERED: Glucagon,Human Recombinant 1 MG Vial IM PRN (14:47)
[2022-09-06] MEDS ORDERED: 50% Dextrose in Water 50 ML Syringe IVPUSH PRN (14:47)
[2022-09-06] MEDS: Acetaminophen 325 MG Tab PO PRN ×2 (16:19→23:21)
[2022-09-06] MEDS ORDERED: Insulin Lispro 100 Unit/ML 3 ML KwikPen SUBCUT ONE ×2 (17:46→22:09)
[2022-09-06] MEDS: Insulin Lispro 100 Unit/ML 3 ML KwikPen SUBCUT SCH (17:50)
[2022-09-06] MEDS: Fluticasone NASAL Spray 16 GM Bottle NAS SCH (20:36)
[2022-09-06] MEDS: Magnesium Oxide 400 MG Tab PO SCH (20:36)
[2022-09-06] MEDS: SUMAtriptan 50 MG Tab PO PRN (23:00)
[2022-09-07] MEDS: Sodium Chloride 0.9% 1,000 ML IV SCH (06:44)
[2022-09-07 06:55] LABS: ESTIMATED GFR 72 mL/min (>60)
[2022-09-07] MEDS: Fluticasone NASAL Spray 16 GM Bottle NAS SCH ×2 (08:05→21:34)
[2022-09-07] MEDS: Insulin Lispro 100 Unit/ML 3 ML KwikPen SUBCUT SCH ×3 (08:05→17:57)
[2022-09-07] MEDS: Topiramate 50 MG Tab PO SCH (08:12)
[2022-09-07] MEDS: Metoprolol Succinate 100 MG Tab.ER PO SCH (08:13)
[2022-09-07] MEDS: Acetaminophen 325 MG Tab PO PRN (08:17)
[2022-09-07] MEDS: SUMAtriptan 50 MG Tab PO PRN (08:17)
[2022-09-07] MEDS: Sodium Chloride 0.9% 250 ML IV SCH ×2 (10:58→14:03)
[2022-09-07] MEDS ORDERED: Furosemide 40 MG/4 ML VIAL IVPUSH SCH (12:00)
[2022-09-07] MEDS: Sodium Chloride 0.9% 10 ML Syringe FLUSH PRN ×3 (13:49→16:40)
[2022-09-07] MEDS ORDERED: Lidocaine 4% 1 each Patch TOP ONE (14:45)
[2022-09-07] MEDS: Ketorolac 30 MG/ML SDV IVPUSH PRN (16:40)
[2022-09-07] MEDS: Pantoprazole 40 MG Tab.CR PO SCH (17:56)
[2022-09-07] MEDS ORDERED: Insulin Lispro 100 Unit/ML 3 ML KwikPen SUBCUT ONE ×2 (21:28→22:54)
[2022-09-07] MEDS: Magnesium Oxide 400 MG Tab PO SCH (21:34)
[2022-09-07] MEDS: Simvastatin 40 MG Tab PO SCH (21:34)
[2022-09-07] MEDS: Pregabalin 50 MG Cap PO SCH (21:34)
[2022-09-07] MEDS: LIDOCAINE PATCHES TRDERM SCH (21:35)
[2022-09-08 05:09] LABS: ESTIMATED GFR 63 mL/min (>60)
[2022-09-08] MEDS: Pantoprazole 40 MG Tab.CR PO SCH ×2 (06:45→17:01)
[2022-09-08] MEDS: Insulin Lispro 100 Unit/ML 3 ML KwikPen SUBCUT SCH ×3 (08:17→18:55)
[2022-09-08] MEDS: Thiamine 100 MG Tab PO SCH (08:19)
[2022-09-08] MEDS: Escitalopram 20 MG Tab PO SCH (08:19)
[2022-09-08] MEDS: Fluticasone NASAL Spray 16 GM Bottle NAS SCH ×2 (08:19→20:16)
[2022-09-08] MEDS: Topiramate 50 MG Tab PO SCH (08:19)
[2022-09-08] MEDS: Metoprolol Succinate 100 MG Tab.ER PO SCH (08:22)
[2022-09-08] MEDS: Lidocaine 4% 1 each Patch TOP SCH (08:22)
[2022-09-08] MEDS ORDERED: Insulin Glargine,Human Rec. Analog 100 Units/ML 3 ML Pen SUBCUT ONE ×3 (08:30→21:00)
[2022-09-08] MEDS: SUMAtriptan 50 MG Tab PO PRN (08:37)
[2022-09-08] MEDS: Spironolactone 25 MG Tab PO SCH (08:38)
[2022-09-08] MEDS: Furosemide 80 MG Tab PO SCH (08:38)
[2022-09-08] MEDS: Pregabalin 50 MG Cap PO SCH ×2 (08:42→20:16)
[2022-09-08] MEDS: Ketorolac 30 MG/ML SDV IVPUSH PRN ×2 (08:42→19:13)
[2022-09-08] MEDS: Sodium Chloride 0.9% 10 ML Syringe FLUSH PRN (08:43)
[2022-09-08] MEDS: Potassium Chloride 20 MEQ Tab.ER PO SCH ×2 (09:40→20:16)
[2022-09-08] MEDS: Furosemide 40 MG Tab PO SCH (11:46)
[2022-09-08] MEDS: Magnesium Oxide 400 MG Tab PO SCH (20:16)
[2022-09-08] MEDS: Simvastatin 40 MG Tab PO SCH (20:16)
[2022-09-08] MEDS: LIDOCAINE PATCHES TRDERM SCH (20:18)
[2022-09-08] MEDS ORDERED: Insulin Lispro 100 Unit/ML 3 ML KwikPen SUBCUT ONE (23:20)
[2022-09-09] MEDS: Acetaminophen 325 MG Tab PO PRN (03:16)
[2022-09-09 07:19] LABS: ESTIMATED GFR 63 mL/min (>60)
[2022-09-09] MEDS: Fluticasone NASAL Spray 16 GM Bottle NAS SCH (09:00)
[2022-09-09] MEDS: Potassium Chloride 20 MEQ Tab.ER PO SCH (09:01)
[2022-09-09] MEDS: Pantoprazole 40 MG Tab.CR PO SCH (09:01)
[2022-09-09] MEDS: Spironolactone 25 MG Tab PO SCH (09:01)
[2022-09-09] MEDS: Escitalopram 20 MG Tab PO SCH (09:01)
[2022-09-09] MEDS: Furosemide 80 MG Tab PO SCH (09:01)
[2022-09-09] MEDS: Thiamine 100 MG Tab PO SCH (09:02)
[2022-09-09] MEDS: Topiramate 50 MG Tab PO SCH (09:03)
[2022-09-09] MEDS: Metoprolol Succinate 100 MG Tab.ER PO SCH (09:05)
[2022-09-09] MEDS: Insulin Lispro 100 Unit/ML 3 ML KwikPen SUBCUT SCH ×2 (09:05→11:33)
[2022-09-09 09:07] VITALS: BP 135/75; PULSE 80
[2022-09-09] MEDS: Pregabalin 50 MG Cap PO SCH (09:20)
[2022-09-09] MEDS: Lidocaine 4% 1 each Patch TOP SCH (10:01)
[2022-09-09] MEDS: Furosemide 40 MG Tab PO SCH (11:34)
[2022-09-09] MEDS ORDERED: Insulin Glargine,Human Rec. Analog 100 Units/ML 3 ML Pen SUBCUT SCH (21:00)
== END 2022-09-09 14:00 | disposition home or self-care (01) | DRG 682 ==
LOC: FB.ED 11:29 → FB.MS 14:06
PROVIDERS: ADMIT Family Medicine; ATTEND Family Medicine
DX: N17.9 Acute kidney failure, unspecified (principal); K85.90 Acute pancreatitis without necrosis or infection, unspecified; I50.32 Chronic diastolic (congestive) heart failure; E87.20 Acidosis, unspecified; R11.2 Nausea with vomiting, unspecified; E87.6 Hypokalemia; E11.40 Type 2 diabetes mellitus with diabetic neuropathy, unspecified; E83.42 Hypomagnesemia; I10 Essential (primary) hypertension; E78.00 Pure hypercholesterolemia, unspecified; E66.9 Obesity, unspecified; R04.0 Epistaxis; I35.0 Nonrheumatic aortic (valve) stenosis; Z79.899 Other long term (current) drug therapy; J44.9 Chronic obstructive pulmonary disease, unspecified; I11.0 Hypertensive heart disease with heart failure; E78.5 Hyperlipidemia, unspecified; G43.909 Migraine, unspecified, not intractable, without status migrainosus; K21.9 Gastro-esophageal reflux disease without esophagitis; K57.90 Diverticulosis of intestine, part unspecified, without perforation or abscess without bleeding; M54.9 Dorsalgia, unspecified; M54.2 Cervicalgia; G89.29 Other chronic pain; M19.90 Unspecified osteoarthritis, unspecified site; F32.A Depression, unspecified; E11.649 Type 2 diabetes mellitus with hypoglycemia without coma; D64.9 Anemia, unspecified; E86.0 Dehydration; Z79.4 Long term (current) use of insulin; Z88.0 Allergy status to penicillin; Z87.891 Personal history of nicotine dependence
CPT/HCPCS: 36415; 80053; 81001; 82947; 83605; 83690; 83735; 84484; 85025; 86140; 87086; 87186; 93005; 96361; 96374; 99285; J3490; J7030; 36430; 80048; 82270; 86850; 86900; 86901; 86920; 86922; 87040; 87088; 99223; 99233; 99238; A9270-GY; J1815; J1815-GY; J1885; J1940; J2405; J3480; J7050; P9016

== ENCOUNTER 2022-12-09 11:32 | Emergency (ER) | payer MEDICARE, MEDICAID ==
[2022-12-09] MEDS ORDERED: Sodium Chloride 0.9% 1,000 ML IV ONE (12:11)
[2022-12-09 12:37] LABS: BILIRUBIN,URINE NEGATIVE (NEGATIVE); GLUCOSE,URINE NORMAL (NORMAL); KETONES,URINE 15 mg/dL (NEGATIVE); LEUKOCYTE ESTERASE,URINE NEGATIVE (NEGATIVE); NITRITE,URINE NEGATIVE (NEGATIVE); OCCULT BLOOD,URINE MODERATE (NEGATIVE); PROTEIN,URINE NEGATIVE (NEGATIVE); UROBILINOGEN,URINE NORMAL (NEGATIVE)
[2022-12-09 12:40] LABS: APPEARANCE,URINE SLIGHTLY CLOUDY (CLEAR); BACTERIA,URINE FEW (NS); COLOR,URINE YELLOW (YELLOW); HYALINE CASTS,URINE OCCASIONAL (NS); RBC,URINE 0-5 (0-5); SQUAMOUS EPITHELIAL CELLS,UR FEW (NS,R,O); WBC,URINE 0-5 (0-5)
[2022-12-09 12:42] LABS: AMPHETAMINES SCREEN, URINE NEGATIVE (NEGATIVE); BARBITURATE SCREEN,URINE NEGATIVE (NEGATIVE); BENZODIAZEPINES SCREEN,URINE NEGATIVE (NEGATIVE); BUPRENORPHINE SCREEN,URINE NEGATIVE (NEGATIVE); METHADONE SCREEN, URINE NEGATIVE (NEGATIVE); METHAMPHETAMINE SCREEN, URINE NEGATIVE (NEGATIVE); OXYCODONE SCREEN,URINE NEGATIVE (NEGATIVE); PROPOXYPHENE SCREEN,URINE NEGATIVE (NEGATIVE); THC SCREEN,URINE NEGATIVE (NEGATIVE)
[2022-12-09 12:57] LABS: BASE EXCESS VENOUS,POC -12 mmol/L (-2 - 3+); PCO2 VENOUS,POC 22 mmHg (41-51); PH VENOUS,POC 7.35 pH Units (7.32-7.43)
[2022-12-09 13:03] LABS: BLOOD UREA NITROGEN,BUN 37 mg/dL (7-18); BUN/CREATININE RATIO 33.6 (9-20); CALCIUM 9.7 mg/dL (8.6-10.2); CARBON DIOXIDE,CO2 15 mmol/L (21-32); CHLORIDE,CL 102 mmol/L (100-110); CREATININE 1.1 mg/dL (0.55-1.02); ESTIMATED GFR 56 mL/min (>60); GLUCOSE RANDOM 206 mg/dL (80-116); POTASSIUM,K 3.6 mmol/L (3.5-5.3); SODIUM,NA 137 mmol/L (135-145)
[2022-12-09 13:04] LABS: MAGNESIUM 1.6 mg/dL (1.8-2.5)
[2022-12-09 13:07] LABS: INR 1.18 (1.00-1.24); PROTHROMBIN TIME 12.1 sec (9.0-11.1)
[2022-12-09 13:09] LABS: A/G RATIO 0.7; ALANINE AMINOTRANSFERASE,ALT 14 U/L (12-36); ALBUMIN 3.5 g/dL (3.2-4.6); ALKALINE PHOSPHATASE 79 IU/L (56-112); ASPARTATE AMNIOTRANSFERASE,AST 22 IU/L (5-25); BILIRUBIN TOTAL 0.3 mg/dL (0.1-1.3); PROTEIN TOTAL,TP 8.7 g/dL (6.0-8.0)
[2022-12-09 13:19] LABS: TSH ULTRASENSITIVE 1.73 IU/mL (0.36-3.74)
[2022-12-09 14:38] LABS: INFLUENZA A NAA NEGATIVE (NEGATIVE); INFLUENZA B NAA NEGATIVE (NEGATIVE); RESPIRATORY SYNCYTIAL VIR NAA NEGATIVE (NEGATIVE)
[2022-12-09 14:40] LABS: CORONAVIRUS COVID-19 NAA NEGATIVE (NEGATIVE)
[2022-12-09 15:31] VITALS: BP 136/68; PULSE 101
== END 2022-12-09 15:20 | disposition home or self-care (01) ==
LOC: FB.ED 11:32
DX: E86.0 Dehydration (principal); H70.91 Unspecified mastoiditis, right ear; E83.42 Hypomagnesemia; R53.83 Other fatigue; R82.4 Acetonuria; E87.4 Mixed disorder of acid-base balance; E87.20 Acidosis, unspecified; R79.82 Elevated C-reactive protein (CRP); R74.8 Abnormal levels of other serum enzymes; I12.9 Hypertensive chronic kidney disease with stage 1 through stage 4 chronic kidney disease, or unspecified chronic kidney disease; E11.22 Type 2 diabetes mellitus with diabetic chronic kidney disease; N18.9 Chronic kidney disease, unspecified; N17.9 Acute kidney failure, unspecified; E78.00 Pure hypercholesterolemia, unspecified; J44.9 Chronic obstructive pulmonary disease, unspecified; E66.9 Obesity, unspecified; Z68.33 Body mass index [BMI] 33.0-33.9, adult; Z91.048 Other nonmedicinal substance allergy status; Z88.8 Allergy status to other drugs, medicaments and biological substances; Z88.0 Allergy status to penicillin; Z79.899 Other long term (current) drug therapy; Z79.4 Long term (current) use of insulin; Z20.822 Contact with and (suspected) exposure to COVID-19
CPT/HCPCS: 0241U; 36415; 70450; 71046; 80053; 80143; 80307; 81001; 82140; 82150; 83605; 83690; 83735; 84443; 84484; 85610; 86140; 87040; 93005; 96360; 99285; J7030

== ENCOUNTER 2023-06-16 08:01 | Day surgery (SDC) | payer MEDICARE, MEDICAID ==
[~2023-06-16 08:01] MED LIST changes: -Lactated Ringers 1,000 ML IV SCH
[2023-06-16] MEDS ORDERED: Propofol 200 MG/20 ML SDV IV ONE (08:02)
[2023-06-16] MEDS: Lactated Ringers 1,000 ML IV SCH (09:10)
[2023-06-16] MEDS: Simethicone Drops 40 MG/0.6 ML 30 ML Bottle PO ONE (09:56)
[2023-06-16 13:24] VITALS: BP 120/73; PULSE 95
== END 2023-06-16 11:35 | disposition home or self-care (01) ==
LOC: FB.SDS 08:01
PROVIDERS: ATTEND Surgery
DX: D50.9 Iron deficiency anemia, unspecified (principal); K92.1 Melena; K57.30 Diverticulosis of large intestine without perforation or abscess without bleeding; J45.909 Unspecified asthma, uncomplicated; I11.0 Hypertensive heart disease with heart failure; I50.9 Heart failure, unspecified; E11.9 Type 2 diabetes mellitus without complications; E78.5 Hyperlipidemia, unspecified; G20.A1 Parkinson's disease without dyskinesia, without mention of fluctuations; E66.9 Obesity, unspecified; Z68.35 Body mass index [BMI] 35.0-35.9, adult; Z87.891 Personal history of nicotine dependence; Z86.010 Personal history of colon polyps; Z79.84 Long term (current) use of oral hypoglycemic drugs; Z79.4 Long term (current) use of insulin; Z79.899 Other long term (current) drug therapy; Z88.0 Allergy status to penicillin; Z88.8 Allergy status to other drugs, medicaments and biological substances
CPT/HCPCS: 00811; 82947; A9270-GY; J2704; J7120

== ENCOUNTER 2024-08-05 08:48 | Emergency (ER) | payer MEDICARE, MEDICAID ==
[2024-08-05] MEDS ORDERED: Sodium Chloride 0.9% 10 ML Syringe FLUSH PRN (09:04)
[2024-08-05] MEDS: Albuterol/Ipratropium 3.0-0.5 MG/3 ML Neb Soln NEB ONE (09:15)
[2024-08-05 09:28] LABS: BLOOD UREA NITROGEN,BUN 20 mg/dL (7-18); BUN/CREATININE RATIO 12.5 (9-20); CALCIUM 8.4 mg/dL (8.6-10.2); CARBON DIOXIDE,CO2 13 mmol/L (21-32); CHLORIDE,CL 99 mmol/L (100-110); CREATININE 1.6 mg/dL (0.55-1.02); EST CRCL DRUG DOSING (CG) 30.27 mL/min; ESTIMATED GFR 36 mL/min (>60); GLUCOSE RANDOM 182 mg/dL (80-116); POTASSIUM,K 3.8 mmol/L (3.5-5.3); SODIUM,NA 138 mmol/L (135-145)
[2024-08-05 09:39] LABS: A/G RATIO 0.6; ALANINE AMINOTRANSFERASE,ALT 73 U/L (12-36); ALBUMIN 3.1 g/dL (3.2-4.6); ALKALINE PHOSPHATASE 127 IU/L (56-112); BASOPHILS PERCENT AUTO 0.2 % (0.2-1.5); BILIRUBIN TOTAL 0.4 mg/dL (0.1-1.3); EOSINOPHILS PERCENT AUTO 0.5 % (0.6-8.1); HEMATOCRIT 31.9 % (34.2-48.2); HEMOGLOBIN 9.3 g/dL (11.4-15.5); LYMPHOCYTES PERCENT AUTO 12.9 % (18.4-52.1); MEAN CORPUSCULAR HEMOGLOBIN 28.5 pg (23.9-33.9); MEAN CORPUSCULAR HGB CONC 29.1 g/dL (31.9-34.8); MEAN CORPUSCULAR VOLUME 98.3 fL (76.7-100.5); MEAN PLATELET VOLUME 9.4 fL (7.1-12.4); MONOCYTES ABSOLUTE AUTO 0.7 x10-3/uL (0.3-1.0); NEUTROPHILS ABSOLUTE AUTO 5.9 x10-3/uL (1.5-6.3); NEUTROPHILS PERCENT AUTO 77.4 % (30.8-76.2); PLATELET COUNT,PLT 171 x10(3)uL (151-488); WHITE BLOOD CELL COUNT,WBC 7.7 x10-3/uL (3.0-10.3)
[2024-08-05 09:40] LABS: LACTIC ACID 2.7 mmol/L (0.4-2.0)
[2024-08-05 09:41] LABS: ASPARTATE AMNIOTRANSFERASE,AST 180 IU/L (5-25)
[2024-08-05] MEDS ORDERED: methylPREDNISolone Sodium Succinate 125 MG/2 ML SDV IM ONE (09:46)
[2024-08-05 09:47] LABS: RED BLOOD CELL COUNT 3.25 x10(6)uL (3.60-5.20)
[2024-08-05 09:51] LABS: C-REACTIVE PROTEIN 2.95 mg/dL (<0.50)
[2024-08-05] MEDS: Magnesium Sulfate/Water Premix 2 GM in Premix Bag 1 BAG IV ONE (09:51)
[2024-08-05] MEDS: methylPREDNISolone Sodium Succinate 125 MG/2 ML SDV IVPUSH ONE (09:54)
[2024-08-05] MEDS: LORazepam 2 MG/ML SDV IVPUSH ONE (09:57)
[2024-08-05 10:02] LABS: INFLUENZA A NAA POSITIVE (NEGATIVE); INFLUENZA B NAA NEGATIVE (NEGATIVE); RESPIRATORY SYNCYTIAL VIR NAA NEGATIVE (NEGATIVE)
[2024-08-05 10:03] LABS: CORONAVIRUS COVID-19 NAA NEGATIVE (NEGATIVE)
[2024-08-05] MEDS: Sodium Chloride 0.9% 1,000 ML IV ONE (10:18)
[2024-08-05 11:46] LABS: APPEARANCE,URINE SLIGHTLY CLOUDY (CLEAR); BILIRUBIN,URINE NEGATIVE (NEGATIVE); COLOR,URINE YELLOW (YELLOW); GLUCOSE,URINE NORMAL (NORMAL); KETONES,URINE 15 mg/dL (NEGATIVE); LEUKOCYTE ESTERASE,URINE SMALL (NEGATIVE); NITRITE,URINE NEGATIVE (NEGATIVE); OCCULT BLOOD,URINE LARGE (NEGATIVE); PROTEIN,URINE 30 mg/dL (NEGATIVE); UROBILINOGEN,URINE NORMAL (NEGATIVE)
[2024-08-05] MEDS: Metoprolol Tartrate 5 MG/5 ML SDV IVPUSH ONE ×2 (12:13→12:33)
[2024-08-05 12:32] LABS: RBC,URINE 0-5 (0-5); WBC,URINE 40-50 (0-5)
[2024-08-05 12:33] LABS: BACTERIA,URINE MANY (NS); SQUAMOUS EPITHELIAL CELLS,UR FEW (NS,R,O)
[2024-08-05] MEDS: cefTRIAXone 1 GM Vial IVPUSH ONE (12:37)
[2024-08-05 12:38] VITALS: BP 136/54; PULSE 127
[2024-08-05] MEDS: Furosemide 40 MG/4 ML VIAL IVPUSH ONE (12:42)
== END 2024-08-05 15:28 ==
LOC: FB.ED 08:48
DX: J44.1 Chronic obstructive pulmonary disease with (acute) exacerbation (principal); J10.1 Influenza due to other identified influenza virus with other respiratory manifestations; N39.0 Urinary tract infection, site not specified; I13.0 Hypertensive heart and chronic kidney disease with heart failure and stage 1 through stage 4 chronic kidney disease, or unspecified chronic kidney disease; I50.9 Heart failure, unspecified; N18.32 Chronic kidney disease, stage 3b; E78.00 Pure hypercholesterolemia, unspecified; K21.9 Gastro-esophageal reflux disease without esophagitis; E11.22 Type 2 diabetes mellitus with diabetic chronic kidney disease; E66.9 Obesity, unspecified; Z87.891 Personal history of nicotine dependence; Z79.899 Other long term (current) drug therapy; Z79.4 Long term (current) use of insulin; Z88.0 Allergy status to penicillin; Z88.8 Allergy status to other drugs, medicaments and biological substances; Z68.33 Body mass index [BMI] 33.0-33.9, adult
CPT/HCPCS: 0241U; 36415; 71045; 80053; 81001; 83605; 83735; 83880; 84484; 85025; 86140; 87040; 87086; 87088; 87186; 93005; 94640; 96361; 96374; 96375; 99285; J0696; J1940; J2060; J2919; J3475; J3490; J7030; J7620